=== PATIENT | male | born 1955 | race Caucasian/White ===

== ENCOUNTER 2020-02-12 | Inpatient (IN) ==
--- NOTE | 2020-02-12 00:22 | History & Physical Report ---
Date of Service February 12, 2020 Assessment & Plan (1) Seizure disorder: (2) Acute respiratory failure with hypoxemia: Carson Fregoso is a 65-year-old male with past medical history of seizure disorder and "heart problems "who presents as a direct transfer from [facility] for acute hypoxic respiratory failure. Acute respiratory failure with hypoxia 2/2 PNA Chest x-ray shows bilateral upper lobe opacities. Appearance potentially concerning for TB. Leukocytosis to 11.1. 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 On external record review by ICU provider conflicting records exist and indicate patient may have been on anticoagulation, beta-mp therapy, and amiodarone in the past. 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 Patient presented to outside hospital with a primary complaint of difficulty voiding and problems with his bowels. Patient was observed by the ED staff to be having difficulty breathing, and required placement on a BiPAP. Peripheral IV access was attempted, but unable to be obtained with repeat attempts. A central line was attempted to be placed by OSH, but central line access was not able to be obtained by the ED or general surgery staff. While in their emergency department patient was noted to have a ABG with pH 7.45, PCO2 41, oxygen pressure of 47, bicarb 28. Chest x-ray showed batwing infiltrates, and concern for edema versus infectious infiltrates. BMP 2K, negative troponin, no EKG abnormalities. Sodium 132, potassium 3.9, creatinine was acutely elevated to 1.3, chloride 97, bicarb 30, GFR 55. Patient was noted to have low phenytoin and 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 levels of 9.4 and 14.7 respectively. Patient with a leukocytosis to 11.7 and given his chest x-ray, hypoxia, and leukocytosis concern was raised for COVID. Covid test was obtained, but [facility] were not available at their facility. Case was discussed between [facility] attending and [facility] hospitalist group and accepted for transfer.Prior to transfer patient received vancomycin, cefepime, and doxycycline antibiotics and 1 g of Tylenol. Patient seen at bedside, wearing CPAP. He reports he is not short of breath, and feels "okay ". He denies fever, chills, sweats, shortness of breath, chest pain, abdominal pain. He is a limited historian. He reports a history of seizures with last seizure many years ago currently on medications that he is not able to give the name of. He denies a history of heart disease and other medications. When asked if he is aware that it was mentioned that he had heart problems noted in his chart he responds "that is news to me ". 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 He has not been around anyone who is traveled, and he himself has not traveled. 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 Denies other medical history. Medical history: Stable seizure disorder Medications: Lisinopril/hydrochlorothiazide 10/12.5 mg 1 tab daily. Phenobarbital 64.8 mg daily 500, 97.2 mg at bedtime. Phenytoin 200 mg 0500, 300 mg nightly. Surgical history: Unable to be obtained by OSH due to confusion. Allergies: Penicillin, rash. Social: Tobacco, alcohol, recreational drug use unknown, unable to obtain due to altered mental status. CODE STATUS: Full code per signout Allergies Allergy/AdvReac Type Severity Reaction Status Date / Time Penicillins Allergy Rash Verified 02/12/20 00:39 Home Medications Home Medications Medication Instructions Recorded Confirmed Type amiodarone 02/12/20 History apixaban [Eliquis] mg 02/12/20 History calcitriol 02/12/20 History ergocalciferol (vitamin D2) 02/12/20 History [Vitamin D2] levothyroxine 02/12/20 History lisinopril-hydrochlorothiazide 1 tab PO DAILY 02/12/20 02/12/20 History metoprolol succinate PO 02/12/20 History 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 64.8 mg PO 0500 02/12/20 02/12/20 History 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 97.2 mg PO HS 02/12/20 02/12/20 History phenytoin sodium 200 mg PO 0500 02/12/20 02/12/20 History phenytoin sodium 300 mg PO HS 02/12/20 02/12/20 History phenytoin sodium extended PO 02/12/20 History Past Med/Surg History Medical History (Updated 02/12/20 @ 17:27 by Gordo Stevens MD) Hematuria Seizure disorder Social History Smoking Status: Former smoker Do You Dip or Chew Tobacco: No; Hx Alcohol Use: No Hx Substance Use: No Preferred Language: Armenian Communication Ability: Effective Lead Qa Analyst Required: No Beliefs That Will Affect Care: None Current Living Situation: Alone Other Information That Helps Us Care for You: No Feels Safe at Home: Yes Safety Concerns: Feels Safe At This Time Review of Systems Review of Systems: Constitutional: Denies fever, chills, malaise, Eyes: Denies vision change ENT: Denies ear pain, sore throat, sinus pain Cardiovascular: Denies Chest pain, chest pressure, palpitations, extremity swelling Respiratory: Denies shortness of breath, cough, sputum production, difficulty breathing Gastrointestinal: Denies abdominal pain, nausea, vomiting, constipation, diarrhea Genitourinary: endorses urinary hesitancy. Denies dysuria. Musculoskeletal: Denies weakness, muscle aches/pain, joint aches/pain Integumentary:Denies rash, lesions, bruising Neurological: Denies headache, numbness, tingling, focal weakness Physical Exam Physical Exam: General: Appears fatigued. Alert and oriented to name and place. Answers questions appropriately. HEENT: Atraumatic, normocephalic. Acuity grossly intact. Pulm: On CPAP. Right upper radiating inspiratory wheeze. Moderate air movement. Symmetrical chest rise. Cardiac: RRR, -mrg. Radial pulses intact and symmetrical. Abdominal: Nontender, nondistended, soft. BS present. Extremities: Right hand with well-healed traumatic amputation/malformation of hands due to sawmill accident. Extremities otherwise warm and dry with sensation to soft touch intact. Critical Care Time Critical Care Time: Yes Total Critical Care Time: 45 Supervising Physician Co-Signing Physician Notes Attending addendum: I have physically seen this patient, have supervised the medical residents activities, and agree with the H&P unless as otherwise noted. Assessment and Plan: Acute respiratory failure with hypoxia/bilateral pneumonia- Admit to intensive care unit COVID testing negative in the ICU MRSA test negative in the ICU Placed on cefepime IV and azithromycin IV QuantiFERON gold testing, continue respiratory isolation until returns negative. Continue BiPAP and adjustment per ABGs Consult electro mechanical engineer and staff Duonebs every 4 hours while awake and every 2 hours when necessary. Elevated d-dimer, with CTA pending. Elevated troponin- Troponin 0 0.268 upon admission. The patient will be admitted to ICU for serial cardiac enzymes, serial EKG's, cardiac rhythm monitoring and a 2-D echocardiogram with Dopplers. Seizure disorder- Continue phenytoin and 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, checking levels. Remaining orders and notations as noted Resident Activity Tracking Resident Involvement: Resident Care Provided Care Provided: Adult Hospital Medicine
[2020-02-12] MEDS ORDERED: ICU PROTOCOL FOR HYPERGLYCEMIA PRN ×2 (01:06→01:07)
[2020-02-12] MEDS ORDERED: ALBUT/IPRATROP 3MG/0.5MG NEB 3 ML VIAL INH PRN (01:06)
[2020-02-12] MEDS ORDERED: MIDAZOLAM HCL 1 MG/ML 2ML VIAL IV PRN (01:17)
--- NOTE | 2020-02-12 01:26 | Critical Care Consultation ---
Date of Consultation February 12, 2020 Assessment & Plan (1) Admitted to intensive care unit: Impression: 65-year-old male, poor historian unsure of exact PMH. Presents to ICU as a direct transfer from OSH with pneumonia/hypoxemic respiratory failure on BiPAP. Neuro - History seizure disordercontinue home meds phenytoin and 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 Cardiac - Normal sinus rhythm and hemodynamically stable Patient with recent prescriptions of Eliquis, amiodarone, MTP field in December but unable to provide history -will likely need follow-up with the patient's primary physician Will obtain echocardiogram as patient has bilateral lower extremity edema and elevated BNP Monitor on telemetry Elevated troponin-no chest pain, EKG NSR without ST elevations -Trend for now Respiratory - Hypoxic respiratory failurelikely secondary to infectious pulmonary process/pneumonia -Consider CHF exacerbation, BNP elevated, however imaging more suggestive with infectious process -Elevated d-dimer, however patient denies leg pain and presentation and lab more consistent with infection -Patient with prescription for amiodarone, cannot rule out toxicity -History of smoking but not active, no known COPD; would suspect OHS/ELIE as patient is morbidly obese -CT chest pending -ABG acceptable on current BiPAP settings -DuoNebs every 4 hours. -We will hold on steroids for the time being -Continuous monitoring on pulse ox GI - N.p.o. RENAL/LYTES - Creatinine within normal limits, monitor electrolytes with routine BMPs and replete as indicated - Foleystrict I's and O's ENDO - No history of diabetes, euglycemic -ICU hyperglycemic protocol TSH pending, pharmacy rec for daily 25 mcg Synthroid, will continue for now HEME - H&H stable, monitor routine CBCs ID - Pneumonia?Patient febrile, leukocytosis, elevated CRP and d-dimer, lymphocytopenia, procalcitonin negative -Rapid COVID-19 negative, however will keep on airborne precautions at the time being as presentation is consistent with this diagnosis -Chest x-ray with bilateral patchy opacifications including apex -QuantiFERON gold testing pending -Blood cultures pending, bio fire negative -MRSA negative -Continue cefepime, azithromycin LINES/IV ACCESS - PIV DVT PROPHYLAXIS - SCDs, subcu heparin Thank you for allowing us to participate in the care of this patient. Please refer to my attending physician's documentation for any further recommendations. (2) Acute respiratory failure with hypoxemia: (3) Seizure disorder: (4) Psoriasis: (5) Pneumonia: History of Present Illness Attending Physician: Endy Courtney History of Present Illness Patient is a 65-year-old male who admits to [facility] of seizure disorder and heart problems, remains a poor historian and is unsure of his medications and dosage. He presented to the emergency department at [facility] with complaints of urinary hesitation. He was found to be a an acute hypoxic respiratory failure, and was ultimately placed on BiPAP. Chest x-ray showed bilateral infiltrates with concern for infectious process. A central line was attempted for poor access but were unable to get at the outside hospital. He was transferred as a direct admit to the ICU as a COVID-19 POI, and placed in negative pressure room. Prior to transfer he had received vancomycin, cefepime, doxycycline, and 1 g Tylenol. On arrival to the ICU patient appears comfortable on BiPAP. He denies recent illness, fevers, headaches, syncope, respiratory infections, shortness of breath or labored breathing, cough, chest pain, nausea or vomiting, abdominal pain, or diarrhea. Patient states he lives alone and manages his on health. He was unable to verify medications or dosage which were obtained from pharmacy records. He does exhibit anasarca and bilateral lower extremity edema and states he wears compression stockings but does not take diuretics. He denies blood thinners but had a prescription of Eliquis filled in December. He did admit to having a seizure disorder and was able to verify that he does take phenytoin and 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 for this. He does appear to have psoriasis and did have a prescription for calcitriol filled in December. Other meds overfilled outside pharmacy include amiodarone 200 mg daily, Synthroid, and MTP. He follows with Dr. Rick ARECHIGA as his primary care in [place]. Currently patient is stable with BiPAP settings. Chest x-ray concerning for infectious process and cultures and COVID-[address] chest. Will remain on airborne precautions for the time being. Patient remain in ICU for further management at this time. Allergies Allergy/AdvReac Type Severity Reaction Status Date / Time Penicillins Allergy Rash Verified 02/12/20 00:39 Home Medications Home Medications Medication Instructions Recorded Confirmed Type amiodarone 02/12/20 History apixaban [Eliquis] mg 02/12/20 History calcitriol 02/12/20 History ergocalciferol (vitamin D2) 02/12/20 History [Vitamin D2] levothyroxine 02/12/20 History lisinopril-hydrochlorothiazide 1 tab PO DAILY 02/12/20 02/12/20 History metoprolol succinate PO 02/12/20 History 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 64.8 mg PO 0500 02/12/20 02/12/20 History 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 97.2 mg PO HS 02/12/20 02/12/20 History phenytoin sodium 200 mg PO 0500 02/12/20 02/12/20 History phenytoin sodium 300 mg PO HS 02/12/20 02/12/20 History phenytoin sodium extended PO 02/12/20 History Patient History Medical History (Updated 02/12/20 @ 07:51 by Wes Kwong MD) Seizure disorder Social History Smoking Status: Former smoker Do You Dip or Chew Tobacco: No; Hx Alcohol Use: No Hx Substance Use: No Preferred Language: Indonesian Communication Ability: Effective Assistant Media Buyer Required: No Beliefs That Will Affect Care: None Current Living Situation: Alone Other Information That Helps Us Care for You: No Feels Safe at Home: Yes Safety Concerns: Feels Safe At This Time Review of Systems Review of Systems: All systems reviewed & are unremarkable except as noted in HPI & below Physical Exam Constitutional: + morbidly obese, cooperative and comfortable; not in distress Eyes: PERRL, conjunctivae normal, anicteric sclerae ENMT: external ear and nose normal, oropharynx normal Neck: trachea midline, no thyromegaly + short neck and + thick neck Respiratory: Lungs diminished bilaterally, symmetrical chest wall movement, nonlabored breathing Cardiovascular: Rate/Rhythm: regular rate and regular rhythm Heart Sounds: normal S1 and normal S2 Extremities: normal capillary refill Bilateral lower extremity +1 edema Gastrointestinal (Abdomen): Abdomen obese, nontender, normal bowel sounds Musculoskeletal: Well-healed right hand mutation with amputated fingers from previous trauma Neurologic: PERRL, EOMI, accommodation nl, no face palsy, no dysarthria Psychiatric: A+Ox3, euthymic affect Genitourinary: Indwelling Pham catheter present Results & Data Results & Data ([facility]) Vital Signs (Past 12 Hours) Vital Signs Temp Pulse Resp BP Pulse Ox 02/12/20 00:24 38.4 C H 95 H 23 97 02/12/20 00:13 84 28 H 97 02/12/20 00:09 38.4 C H 90 24 141/92 H 98 Coding Level of Care Code 92966 Inpt Consult Level 5 Diagnoses Admitted to intensive care unit Z78.9 Acute respiratory failure with hypoxemia J96.01 Seizure disorder G40.909 Psoriasis L40.9 Pneumonia J18.9
[2020-02-12 03:20] LABS: Appearance Urine Cloudy (Clear); Bilirubin Urine Negative (Negative); Blood Urine 3+ (Negative); Color Urine Red; Glucose Urine UA Negative (Negative); Ketones Urine Negative (Negative); Leukocyte Esterase Urine Negative (Negative); Nitrite Urine Negative (Negative); Protein Urine 3+ (Negative); Specific Gravity Urine 1.015 (1.000-1.030); Urobilinogen Urine Negative (Negative)
[2020-02-12 03:25] LABS: Basophils # (auto) 0.02 K/uL (0-0.2); Basophils % (auto) 0.2 %; Eosinophils % (auto) 0.9 %; Hematocrit (blood only) 40.1 % (42-52); Hemoglobin 13.3 g/dL (14.0-18.0); Immature Granulocytes # (auto) 0.07 K/uL (0.00-0.02); Immature Granulocytes % (auto) 0.6 %; Lymphocytes # (auto) 1.19 K/uL (1.2-3.4); Lymphocytes % (auto) 10.7 %; Mean Corpuscular Hemoglobin 32.8 pg (25-34); Mean Corpuscular Hgb Conc 33.2 g/dL (32-36); Mean Corpuscular Volume 98.8 fL (80-100); Mean Platelet Volume 9.4 fL (7.4-10.4); Monocytes # (auto) 1.09 K/uL (0.11-0.59); Monocytes % (auto) 9.8 %; Neutrophils # (auto) 8.67 K/uL (1.4-6.5); Neutrophils % (auto) 77.8 %; Nucleated RBC # (auto) 0.03 K/uL (0-0); Nucleated RBC % (auto) 0.3 %; Platelet Count 236 K/uL (130-400); RDW Coefficient of Variation 15.2 % (11.5-14.5); RDW Standard Deviation 54.8 fL (36.4-46.3); Red Blood Count 4.06 M/uL (4.7-6.1); White Blood Count 11.14 K/uL (4.8-10.8)
[2020-02-12 03:31] LABS: Bacteria Urine Negative (Negative); Epithelial Cell Urine 0-5 /lpf (0-5); RBC Urine >30 /hpf (0-4)
[2020-02-12 03:46] LABS: INR 1.1 (0.9-1.1); Partial Thromboplastin Ratio 0.9; Partial Thromboplastin Time 24.8 Seconds (21.0-31.0); Prothrombin Time 11.5 Seconds (9.0-12.0)
[2020-02-12 03:47] LABS: Albumin Level 2.7 gm/dl (3.4-5.0); BUN Creatinine Ratio 12.9 (10-20); Bilirubin Direct 0.2 mg/dl (0-0.2); Bilirubin,Total 0.5 mg/dl (0.2-1); C Reactive Protein 13.3 mg/dl (0-0.29); Calcium 7.8 mg/dl (8.5-10.1); Creatinine Clr Calc Pharmacy 100.6 ml/min; Est GFR (African American) 80.3; Est GFR (Non-African American) 69.3; Phosphorus 2.6 mg/dl (2.5-4.9); Potassium 4.1 mmol/L (3.5-5.1); Total Protein 7.7 gm/dl (6.4-8.2)
[2020-02-12 03:51] LABS: D Dimer 8110 ug/L FEU (0-500)
[2020-02-12 03:52] LABS: Troponin I 0.268 ng/ml (0-0.045)
[2020-02-12 03:58] LABS: Adenovirus PCR Not Detected (NotDetected); Bordetella parapertussis PCR Not Detected (NotDetected); Bordetella pertussis PCR Not Detected (NotDetected); Chlamydia pneumoniae PCR Not Detected (NotDetected); Coronavirus 229E PCR Not Detected (NotDetected); Coronavirus HKU1 PCR Not Detected (NotDetected); Coronavirus NL63 PCR Not Detected (NotDetected); Coronavirus OC43PCR Not Detected (NotDetected); Human Metapneumovirus PCR Not Detected (NotDetected); Influenza A PCR Not Detected (NotDetected); Influenza B PCR Not Detected (NotDetected); Mycoplasma pneumoniae PCR Not Detected (NotDetected); Parainfluenza Virus 1 PCR Not Detected (NotDetected); Parainfluenza Virus 2 PCR Not Detected (NotDetected); Parainfluenza Virus 3 PCR Not Detected (NotDetected); Parainfluenza Virus 4 PCR Not Detected (NotDetected); Respiratory Syncytial VirusPCR Not Detected (NotDetected); Rhinovirus/Enterovirus PCR Not Detected (NotDetected)
[2020-02-12] MEDS: ACETAMINOPHEN 325 MG TAB PO PRN ×3 (05:37→21:56)
[2020-02-12] MEDS: LEVOTHYROXINE SODIUM 25 MCG TABLET PO SCH (06:37)
[2020-02-12] MEDS: CEFEPIME 2,000 MG in SYRINGE 7.5 ML IV SCH ×3 (06:37→21:38)
--- NOTE | 2020-02-12 07:26 | XRay Report ---
XR chest 1V portable CLINICAL HISTORY: Shortness of breath. COMPARISON STUDY: No previous studies for comparison. FINDINGS: The heart is borderline enlarged. There are bilateral nodular airspace opacities, likely re presenting a multifocal pneumonia. There are no significant pleural effusions. There is no pneumothor ax.[ IMPRESSION: Bilateral nodular pulmonary airspace opacities, likely representing a multifocal pneumoni a. Clinical and radiographic follow-up is recommended. ACT 112: Negative or not required by law. Electronically signed by: Pietro Jones M.D. 02/12/2020 7:24 AM
--- NOTE | 2020-02-12 07:50 | Hospitalist Progress Note ---
Date of Service February 12, 2020 Assessment & Plan (1) Admitted to intensive care unit: 65-year-old male, this patient is a transfer from [facility] with acute respiratory failure with hypoxia, concern for bilateral apical infiltrates on chest x-ray, undisclosed cardiac history previously on amiodarone, and history of seizure disorder. Patient was transferred due to progressive respiratory failure despite antibiotic treatment. Patient arrives on BiPAP. Patient has negative MRSA nasal swab rapid Covid testing was negative (2) Acute respiratory failure with hypoxemia: Chest x-ray shows bilateral upper lobe opacities. Appearance potentially concerning for TB. Versus an atypical infection Patient febrile to 38.6 on admission, SPO2 greater than 90% on BiPAP COVID negative, MRSA negative, bio fire negative Was receiving cefepime/Doxy prior to transfer->transitioned to Azithromycin/Cefepime - Quantiferon Gold testing pending -Elevated [id number] -CT chest with PE protocol 02/12/2020 IMPRESSION: 1. Acute appearing extensive right-sided pulmonary emboli. No evidence of right heart strain. 2. Trace pleural effusions with bilateral upper lobe predominant groundglass and consolidative opacities suggestive of a multifocal pneumonia. One month follow- up chest CT after treatment course is recommended to document resolution. 3. Nonspecific subcutaneous stranding of the right upper chest anterior to the pectoralis. This may be on a posttraumatic or infectious basis. will discuss with critical care best approach for therapeutic anticoaguation Elevated troponin elevated BNP 0.268-0.17, suspect type II mismatch No chest pain on exam TTE pending History of Heart Condition -Patient denies history of heart condition "this would be news to me "and denies taking any heart medications. On external record review by ICU provider conflicting records exist and indicate patient may have been on anticoagulation, beta-mp therapy, and amiodarone in the past. 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, will check 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 and phenytoin levels (4) Psoriasis: (5) Pneumonia: (6) Elevated troponin: troponin 0.268-0.17, ecg nsr, will trend troponins (7) DVT prophylaxis: heparin sc for dvt Admission and Anticipated Discharge Date Admission Date: February 12, 2020 Subjective this pt remains fairly ill tolerating Bipap, he seems to have little insight into his medical history Review of Systems Review of Systems: Moderate to significant respiratory distress and moderate fatigue no headache, blurry or double vision no speech or swallowing issues no chest pain, pressure or palpitations Significantly short of breath, nonproductive cough no abdominal pain, nausea or vomiting, no dysuria, hematuria or frequency no focal joint pain or swelling no back pain, CVA tenderness or radicular pain no bruising, bleeding or rashes no focal signs of weakness or numbness or altered sensation Physical Exam Physical Exam: The patient appeared morbidly obese in mild distress Vital signs as documented. Head exam is normocephalic atraumatic no scleral icterus Neck is without JVD, thyromegaly, or carotid bruits. Lungs are initially air movement no focal loss no wheeze Cardiac exam, Rhythm is regular.. No murmurs, rubs or gallops. Abdominal exam reveals normal bowel sounds, soft non tender, no masses Extremities are nonedematous and both pedal pulses are normal. Neurologic exam is alert and oriented, no focal loss of strength or sensation Skin is without bruises or rashes Psychologically is without concerns for anxiety or depression Results & Data Results & Data ([facility]) Vital Signs (Past 12 Hours) Vital Signs Temp Pulse Pulse Resp BP Pulse Ox 02/12/20 05:00 101.7 F H 99 H 21 92 02/12/20 04:37 101.7 F H 98 H 23 132/91 92 02/12/20 04:00 101.7 F H 99 H 19 95 02/12/20 03:43 101.7 F H 102 H 24 160/98 H 95 02/12/20 03:40 94 H 24 92 02/12/20 03:00 101.5 F H 93 H 22 95 02/12/20 02:37 101.5 F H 94 H 16 134/89 95 02/12/20 02:00 101.3 F H 97 H 20 148/89 H 96 02/12/20 01:30 101.5 F H 85 22 164/100 H 93 02/12/20 01:00 101.5 F H 92 H 24 96 02/12/20 00:24 101.1 F H 95 H 23 97 02/12/20 00:13 84 28 H 97 02/12/20 00:09 101.1 F H 90 24 141/92 H 98 PG Care Time/CCT Total # of Minutes Spent Total Time Spent with Patient: Total time spent is greater than 50% in coordination of care (as documented) at patient's floor/unit and/or counseling patient: Coding Level of Care Code 39138 Subseq Hosp Care Lvl 3 Diagnoses Admitted to intensive care unit Z78.9 Acute respiratory failure with hypoxemia J96.01 Seizure disorder G40.909 Psoriasis L40.9 Pneumonia J18.9 Elevated troponin R79.89 DVT prophylaxis Z29.9
[2020-02-12] MEDS ORDERED: PNEUMOCOCCAL Polysaccharide Vaccine 25mcg/0.5mL vial/Syr IM ONE (08:00)
[2020-02-12] MEDS ORDERED: HEPARIN SOD 5,000 UNIT/0.5 ML VIAL SQ SCH (09:00)
[2020-02-12] MEDS: CALCITRIOL 0.25 MCG CAPSULE PO SCH (09:40)
[2020-02-12] MEDS: PHENYTOIN SODIUM ER 100 MG CAP PO SCH ×2 (09:40→21:38)
[2020-02-12] MEDS: METOPROLOL SUCC 25MG EXT REL TAB PO SCH (09:41)
[2020-02-12] MEDS: AZITHROMYCIN 500 MG in DEXTROSE 5% 250 ML IV SCH (09:41)
[2020-02-12 10:58] LABS: Phenytoin (Dilantin) 9.4 mcg/ml (10-20)
--- NOTE | 2020-02-12 12:47 | Electrocardiogram Report ---
Test Reason : Blood Pressure : / mmHG Vent. Rate : 096 BPM Atrial Rate : 096 BPM P-R Int : 178 ms QRS Dur : 094 ms QT Int : 370 ms P-R-T Axes : 038 020 006 degrees QTc Int : 467 ms Normal sinus rhythm Poor R wave progression, consider anterior IL vs. lead placement vs. LVH Abnormal ECG No previous ECGs available Confirmed by Ramirez Tena ([id number]) on 02/12/2020 12:47:38 PM Referred By: Endy Courtney Confirmed By:Ramirez Tena
[2020-02-12] MEDS ORDERED: OPTIRAY 320 125ml IV ONE (16:14)
--- NOTE | 2020-02-12 16:31 | CT Scan Report ---
CHEST CT WITH CONTRAST CT DOSE: 1214.67 mGy.cm HISTORY: Acute respiratory failure with reported atypical pneumonia resp failure/ atypical PNA TECHNIQUE: Multiaxial CT images of the chest were performed following the IV administration of 120 cc of Optiray 320. A dose lowering technique was utilized adhering to the principles of ALARA. COMPARISON: Chest radiograph 02/11/2020 FINDINGS: Unremarkable thyroid. No adenopathy. Moderate cardiomegaly. No pericardial effusion. Fusiform aneurys mal dilation of the ascending thoracic aorta, 4.7 x 4.6 cm. There is patency of the imaged great vess els. Mild descending thoracic aortic tortuosity. There are numerous pulmonary emboli present within t he right lobar, segmental and subsegmental branches and also within the distal right main pulmonary a rtery. No definite evidence of right heart strain. Trace pleural effusions. There is no pneumothorax. Patchy multifocal groundglass and consolidative op acities within the left greater than right upper lobes and lingula. Mild groundglass densities of the lung bases favor atelectasis. Central airways appear patent. No overt pulmonary edema. There is no acute process of the imaged upper abdomen. Nonspecific stranding of the right upper chest anterior to the pectoralis. 1.6 cm barber sebaceous cyst of the left upper back. Bones appear intact. IMPRESSION: 1. Acute appearing extensive right-sided pulmonary emboli. No evidence of right heart strain. 2. Trace pleural effusions with bilateral upper lobe predominant groundglass and consolidative opacit ies suggestive of a multifocal pneumonia. One month follow-up chest CT after treatment course is jimbo mmended to document resolution. 3. Nonspecific subcutaneous stranding of the right upper chest anterior to the pectoralis. This may b e on a posttraumatic or infectious basis. ACT 112: Negative or not required by law. Electronically signed by: Sourav Flynn M.D. 02/12/2020 4:30 PM
--- NOTE | 2020-02-12 17:21 | Urology Consultation ---
Date of Consultation February 12, 2020 Assessment & Plan (1) Hematuria: Assessment Hematuria Most likely related to his catheterization as he did not have gross bleeding until after the catheter was placed Would leave the catheter for now Possible voiding trial before the patient goes home after he is recovered from his acute illness Would work-up the hematuria as an outpatient after discharge History of Present Illness Attending Physician: Wes Kwong MD History of Present Illness Patient is a 65-year-old white male who was admitted to the ICU with a diagnosis of acute respiratory failure and hypoxia. We are asked to see the patient because of some hematuria. Patient tells me that he had been voiding prior to being admitted here and the urine was clear. When he got here Pham catheter was inserted and that is when he noticed he developed blood in the urine. While he was voiding on his own he had no dysuria hematuria. Also had no flank pain. Allergies Allergy/AdvReac Type Severity Reaction Status Date / Time Penicillins Allergy Rash Verified 02/12/20 00:39 Home Medications Home Medications Medication Instructions Recorded Confirmed Type amiodarone 02/12/20 History apixaban [Eliquis] mg 02/12/20 History calcitriol 02/12/20 History ergocalciferol (vitamin D2) 02/12/20 History [Vitamin D2] levothyroxine 02/12/20 History lisinopril-hydrochlorothiazide 1 tab PO DAILY 02/12/20 02/12/20 History metoprolol succinate PO 02/12/20 History 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 64.8 mg PO 0500 02/12/20 02/12/20 History 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 97.2 mg PO HS 02/12/20 02/12/20 History phenytoin sodium 200 mg PO 0500 02/12/20 02/12/20 History phenytoin sodium 300 mg PO HS 02/12/20 02/12/20 History phenytoin sodium extended PO 02/12/20 History Patient History Medical History (Updated 02/12/20 @ 17:27 by Gordo Stevens MD) Hematuria Seizure disorder Social History Smoking Status: Former smoker Do You Dip or Chew Tobacco: No; Hx Alcohol Use: No Hx Substance Use: No Preferred Language: [place] Communication Ability: Effective Medical Geneticist Required: No Beliefs That Will Affect Care: None Current Living Situation: Alone Other Information That Helps Us Care for You: No Feels Safe at Home: Yes Safety Concerns: Feels Safe At This Time Review of Systems Review of Systems: Review of systems reviewed from his hospitalist notes Physical Exam Physical Exam: Constitutional Well-developed well-nourished In no acute distress, Healthy appearing Neuro/psych Alert and oriented x3 Normal mood Normal affect Normal coordination Skin Normal color Normal turgor No rashes Warm and Dry Neck Normal visual inspection Pulmonary Patient somewhat short of breath but not using accessory muscles No audible wheezes Able to speak in complete sentences Cardiac Lower extremity peripheral edema patient has a Pham catheter indwelling urine is mercedes in color no clots Results & Data ([facility]) Vital Signs (Past 12 Hours) Vital Signs Temp Pulse Pulse Resp BP Pulse Ox 02/12/20 15:11 100 H 26 H 94 02/12/20 14:38 38.1 C H 98 H 28 H 117/57 L 86 L 02/12/20 14:00 37.8 C H 104 H 22 87 L 02/12/20 13:38 37.6 C H 100 H 27 H 135/62 87 L 02/12/20 13:00 37.5 C 94 H 20 84 L 02/12/20 12:37 37.5 C 90 27 H 129/77 94 02/12/20 11:37 37.6 C H 81 26 H 133/81 100 02/12/20 10:37 37.4 C 84 26 H 129/86 97 02/12/20 09:37 37.4 C 95 H 21 125/72 94 02/12/20 08:37 37.6 C H 103 H 23 125/84 93 02/12/20 08:00 95 H 25 H 93 02/12/20 07:37 37.8 C H 93 H 19 111/76 93 Laboratory Results Laboratory Results - last 24 hr 02/12/20 02/12/20 02/12/20 00:00 00:00 00:00 WBC RBC Hgb Hct MCV MCH MCHC RDW Std Deviation RDW Coeff of [place] Plt Count MPV Immature Gran % (Auto) Neut % (Auto) Lymph % (Auto) [place] % (Auto) Eos % (Auto) Baso % (Auto) Neut # (Auto) Lymph # (Auto) [place] # (Auto) Eos # (Auto) Baso # (Auto) Immature Gran # (Auto) Absolute Nucleated RBC Nucleated RBC % (auto) PT INR APTT PTT Ratio D-Dimer Sodium Potassium Chloride Carbon Dioxide Anion Gap BUN Creatinine Est Cr Clr Drug Dosing Est GFR ( Amer) Est GFR (Non-Af Amer) BUN/Creatinine Ratio Glucose POC Glucose Calcium Phosphorus Magnesium Total Bilirubin Direct Bilirubin AST ALT Alkaline Phosphatase Troponin I C-Reactive Protein NT-Pro-B Natriuret Pep Total Protein Albumin Lipase Procalcitonin TSH Urine Color Urine Appearance Urine pH Ur Specific [place] Urine Protein Urine Glucose (UA) Urine Ketones Urine Blood Urine Nitrite Urine Bilirubin Urine Urobilinogen Ur Leukocyte Esterase Urine RBC Urine WBC Ur Epithelial Cells Urine Bacteria Nasal Screen MRSA (PCR) Negative Phenytoin Phenobarbital Adenovirus (PCR) B. pertussis DNA (PCR) B.parapertussis DNA PCR C. pneumoniae DNA (PCR) Coronavirus OC43 (PCR) Coronavirus HKU1 (PCR) Coronavirus 229E (PCR) COVID-19 Eval Order Covid19 Done at [facility] COVID-19 PCR NEGATIVE Coronavirus NL63 (PCR) Hepatitis C Ab Screen Human Metapneumovir PCR Influenza Type A (PCR) Influenza Type B (PCR) M. pneumoniae (PCR) Parainfluenza 1 (PCR) Parainfluenza 2 (PCR) Parainfluenza 3 (PCR) Parainfluenza 4 (PCR) RSV (PCR) Entero/Rhino (PCR) TB Test (QFT) Gold Plus TB Test (QFT) Nil TB Test Mitogen - Nil TB Test Ag - Nil 1 TB Test Ag - Nil 2 02/12/20 02/12/20 02/12/20 00:00 00:40 02:30 WBC RBC Hgb Hct MCV MCH MCHC RDW Std Deviation RDW Coeff of [place] Plt Count MPV Immature Gran % (Auto) Neut % (Auto) Lymph % (Auto) [place] % (Auto) Eos % (Auto) Baso % (Auto) Neut # (Auto) Lymph # (Auto) [place] # (Auto) Eos # (Auto) Baso # (Auto) Immature Gran # (Auto) Absolute Nucleated RBC Nucleated RBC % (auto) PT INR APTT PTT Ratio D-Dimer Sodium Potassium Chloride Carbon Dioxide Anion Gap BUN Creatinine Est Cr Clr Drug Dosing Est GFR ( Amer) Est GFR (Non-Af Amer) BUN/Creatinine Ratio Glucose POC Glucose 112 H Calcium Phosphorus Magnesium Total Bilirubin Direct Bilirubin AST ALT Alkaline Phosphatase Troponin I C-Reactive Protein NT-Pro-B Natriuret Pep Total Protein Albumin Lipase Procalcitonin TSH Urine Color Red Urine Appearance Cloudy A Urine pH 7.0 Ur Specific [place] 1.015 Urine Protein 3+ H Urine Glucose (UA) Negative Urine Ketones Negative Urine Blood 3+ H Urine Nitrite Negative Urine Bilirubin Negative Urine Urobilinogen Negative Ur Leukocyte Esterase Negative Urine RBC >30 H Urine WBC 5-10 H Ur Epithelial Cells 0-5 Urine Bacteria Negative Nasal Screen MRSA (PCR) Phenytoin Phenobarbital Adenovirus (PCR) Not Detected B. pertussis DNA (PCR) Not Detected B.parapertussis DNA PCR Not Detected C. pneumoniae DNA (PCR) Not Detected Coronavirus OC43 (PCR) Not Detected Coronavirus HKU1 (PCR) Not Detected Coronavirus 229E (PCR) Not Detected COVID-19 Eval Order COVID-19 PCR Coronavirus NL63 (PCR) Not Detected Hepatitis C Ab Screen Human Metapneumovir PCR Not Detected Influenza Type A (PCR) Not Detected Influenza Type B (PCR) Not Detected M. pneumoniae (PCR) Not Detected Parainfluenza 1 (PCR) Not Detected Parainfluenza 2 (PCR) Not Detected Parainfluenza 3 (PCR) Not Detected Parainfluenza 4 (PCR) Not Detected RSV (PCR) Not Detected Entero/Rhino (PCR) Not Detected TB Test (QFT) Gold Plus TB Test (QFT) Nil TB Test Mitogen - Nil TB Test Ag - Nil 1 TB Test Ag - Nil 2 02/12/20 02/12/20 02/12/20 03:16 03:16 03:16 WBC 11.14 H RBC 4.06 L Hgb 13.3 L Hct 40.1 L MCV 98.8 MCH 32.8 MCHC 33.2 RDW Std Deviation 54.8 H RDW Coeff of [place] 15.2 H Plt Count 236 MPV 9.4 Immature Gran % (Auto) 0.6 Neut % (Auto) 77.8 Lymph % (Auto) 10.7 [place] % (Auto) 9.8 Eos % (Auto) 0.9 Baso % (Auto) 0.2 Neut # (Auto) 8.67 H Lymph # (Auto) 1.19 L [place] # (Auto) 1.09 H Eos # (Auto) 0.10 Baso # (Auto) 0.02 Immature Gran # (Auto) 0.07 H Absolute Nucleated RBC 0.03 H Nucleated RBC % (auto) 0.3 PT 11.5 INR 1.1 APTT 24.8 PTT Ratio 0.9 D-Dimer 8110 H* Sodium Potassium Chloride Carbon Dioxide Anion Gap BUN Creatinine Est Cr Clr Drug Dosing Est GFR ( Amer) Est GFR (Non-Af Amer) BUN/Creatinine Ratio Glucose POC Glucose Calcium Phosphorus Magnesium Total Bilirubin Direct Bilirubin AST ALT Alkaline Phosphatase Troponin I C-Reactive Protein NT-Pro-B Natriuret Pep Total Protein Albumin Lipase Procalcitonin TSH Urine Color Urine Appearance Urine pH Ur Specific [place] Urine Protein Urine Glucose (UA) Urine Ketones Urine Blood Urine Nitrite Urine Bilirubin Urine Urobilinogen Ur Leukocyte Esterase Urine RBC Urine WBC Ur Epithelial Cells Urine Bacteria Nasal Screen MRSA (PCR) Phenytoin Phenobarbital Adenovirus (PCR) B. pertussis DNA (PCR) B.parapertussis DNA PCR C. pneumoniae DNA (PCR) Coronavirus OC43 (PCR) Coronavirus HKU1 (PCR) Coronavirus 229E (PCR) COVID-19 Eval Order COVID-19 PCR Coronavirus NL63 (PCR) Hepatitis C Ab Screen Neg Human Metapneumovir PCR Influenza Type A (PCR) Influenza Type B (PCR) M. pneumoniae (PCR) Parainfluenza 1 (PCR) Parainfluenza 2 (PCR) Parainfluenza 3 (PCR) Parainfluenza 4 (PCR) RSV (PCR) Entero/Rhino (PCR) TB Test (QFT) Gold Plus TB Test (QFT) Nil TB Test Mitogen - Nil TB Test Ag - Nil 1 TB Test Ag - Nil 2 02/12/20 02/12/20 02/12/20 03:16 03:16 03:16 WBC RBC Hgb Hct MCV MCH MCHC RDW Std Deviation RDW Coeff of [place] Plt Count MPV Immature Gran % (Auto) Neut % (Auto) Lymph % (Auto) [place] % (Auto) Eos % (Auto) Baso % (Auto) Neut # (Auto) Lymph # (Auto) [place] # (Auto) Eos # (Auto) Baso # (Auto) Immature Gran # (Auto) Absolute Nucleated RBC Nucleated RBC % (auto) PT INR APTT PTT Ratio D-Dimer Sodium 134 L Potassium 4.1 Chloride 104 Carbon Dioxide 26 Anion Gap 4.0 BUN 14 Creatinine 1.11 Est Cr Clr Drug Dosing 100.6 Est GFR ( Amer) 80.3 Est GFR (Non-Af Amer) 69.3 BUN/Creatinine Ratio 12.9 Glucose 111 H POC Glucose Calcium 7.8 L Phosphorus 2.6 Magnesium 2.0 Total Bilirubin 0.5 Direct Bilirubin 0.2 AST 41 H ALT 52 Alkaline Phosphatase 63 Troponin I 0.268 H* C-Reactive Protein 13.30 H NT-Pro-B Natriuret Pep 1599 H Total Protein 7.7 Albumin 2.7 L Lipase 232 Procalcitonin 0.10 TSH 2.940 Urine Color Urine Appearance Urine pH Ur Specific [place] Urine Protein Urine Glucose (UA) Urine Ketones Urine Blood Urine Nitrite Urine Bilirubin Urine Urobilinogen Ur Leukocyte Esterase Urine RBC Urine WBC Ur Epithelial Cells Urine Bacteria Nasal Screen MRSA (PCR) Phenytoin Phenobarbital Adenovirus (PCR) B. pertussis DNA (PCR) B.parapertussis DNA PCR C. pneumoniae DNA (PCR) Coronavirus OC43 (PCR) Coronavirus HKU1 (PCR) Coronavirus 229E (PCR) COVID-19 Eval Order COVID-19 PCR Coronavirus NL63 (PCR) Hepatitis C Ab Screen Human Metapneumovir PCR Influenza Type A (PCR) Influenza Type B (PCR) M. pneumoniae (PCR) Parainfluenza 1 (PCR) Parainfluenza 2 (PCR) Parainfluenza 3 (PCR) Parainfluenza 4 (PCR) RSV (PCR) Entero/Rhino (PCR) TB Test (QFT) Gold Plus TB Test (QFT) Nil TB Test Mitogen - Nil TB Test Ag - Nil 1 TB Test Ag - Nil 2 02/12/20 02/12/20 02/12/20 04:40 08:37 09:51 WBC RBC Hgb Hct MCV MCH MCHC RDW Std Deviation RDW Coeff of [place] Plt Count MPV Immature Gran % (Auto) Neut % (Auto) Lymph % (Auto) [place] % (Auto) Eos % (Auto) Baso % (Auto) Neut # (Auto) Lymph # (Auto) [place] # (Auto) Eos # (Auto) Baso # (Auto) Immature Gran # (Auto) Absolute Nucleated RBC Nucleated RBC % (auto) PT INR APTT PTT Ratio D-Dimer Sodium Potassium Chloride Carbon Dioxide Anion Gap BUN Creatinine Est Cr Clr Drug Dosing Est GFR ( Amer) Est GFR (Non-Af Amer) BUN/Creatinine Ratio Glucose POC Glucose 101 H Calcium Phosphorus Magnesium Total Bilirubin Direct Bilirubin AST ALT Alkaline Phosphatase Troponin I 0.174 H* C-Reactive Protein NT-Pro-B Natriuret Pep Total Protein Albumin Lipase Procalcitonin TSH Urine Color Urine Appearance Urine pH Ur Specific [place] Urine Protein Urine Glucose (UA) Urine Ketones Urine Blood Urine Nitrite Urine Bilirubin Urine Urobilinogen Ur Leukocyte Esterase Urine RBC Urine WBC Ur Epithelial Cells Urine Bacteria Nasal Screen MRSA (PCR) Phenytoin Phenobarbital Adenovirus (PCR) B. pertussis DNA (PCR) B.parapertussis DNA PCR C. pneumoniae DNA (PCR) Coronavirus OC43 (PCR) Coronavirus HKU1 (PCR) Coronavirus 229E (PCR) COVID-19 Eval Order COVID-19 PCR Coronavirus NL63 (PCR) Hepatitis C Ab Screen Human Metapneumovir PCR Influenza Type A (PCR) Influenza Type B (PCR) M. pneumoniae (PCR) Parainfluenza 1 (PCR) Parainfluenza 2 (PCR) Parainfluenza 3 (PCR) Parainfluenza 4 (PCR) RSV (PCR) Entero/Rhino (PCR) TB Test (QFT) Gold Plus Pending TB Test (QFT) Nil Pending TB Test Mitogen - Nil Pending TB Test Ag - Nil 1 Pending TB Test Ag - Nil 2 Pending 02/12/20 02/12/20 02/12/20 09:51 12:06 13:25 WBC RBC Hgb Hct MCV MCH MCHC RDW Std Deviation RDW Coeff of [place] Plt Count MPV Immature Gran % (Auto) Neut % (Auto) Lymph % (Auto) [place] % (Auto) Eos % (Auto) Baso % (Auto) Neut # (Auto) Lymph # (Auto) [place] # (Auto) Eos # (Auto) Baso # (Auto) Immature Gran # (Auto) Absolute Nucleated RBC Nucleated RBC % (auto) PT INR APTT PTT Ratio D-Dimer Sodium Potassium Chloride Carbon Dioxide Anion Gap BUN Creatinine Est Cr Clr Drug Dosing Est GFR ( Amer) Est GFR (Non-Af Amer) BUN/Creatinine Ratio Glucose POC Glucose 111 H Calcium Phosphorus Magnesium Total Bilirubin Direct Bilirubin AST ALT Alkaline Phosphatase Troponin I C-Reactive Protein NT-Pro-B Natriuret Pep Total Protein Albumin Lipase Procalcitonin TSH Urine Color Urine Appearance Urine pH Ur Specific [place] Urine Protein Urine Glucose (UA) Urine Ketones Urine Blood Urine Nitrite Urine Bilirubin Urine Urobilinogen Ur Leukocyte Esterase Urine RBC Urine WBC Ur Epithelial Cells Urine Bacteria Nasal Screen MRSA (PCR) Phenytoin 9.4 L Phenobarbital 14.8 L Adenovirus (PCR) B. pertussis DNA (PCR) B.parapertussis DNA PCR C. pneumoniae DNA (PCR) Coronavirus OC43 (PCR) Coronavirus HKU1 (PCR) Coronavirus 229E (PCR) COVID-19 Eval Order Covid19 Done at [facility] COVID-19 PCR Coronavirus NL63 (PCR) Hepatitis C Ab Screen Human Metapneumovir PCR Influenza Type A (PCR) Influenza Type B (PCR) M. pneumoniae (PCR) Parainfluenza 1 (PCR) Parainfluenza 2 (PCR) Parainfluenza 3 (PCR) Parainfluenza 4 (PCR) RSV (PCR) Entero/Rhino (PCR) TB Test (QFT) Gold Plus TB Test (QFT) Nil TB Test Mitogen - Nil TB Test Ag - Nil 1 TB Test Ag - Nil 2 02/12/20 02/12/20 13:25 16:36 WBC RBC Hgb Hct MCV MCH MCHC RDW Std Deviation RDW Coeff of [place] Plt Count MPV Immature Gran % (Auto) Neut % (Auto) Lymph % (Auto) [place] % (Auto) Eos % (Auto) Baso % (Auto) Neut # (Auto) Lymph # (Auto) [place] # (Auto) Eos # (Auto) Baso # (Auto) Immature Gran # (Auto) Absolute Nucleated RBC Nucleated RBC % (auto) PT INR APTT PTT Ratio D-Dimer Sodium Potassium Chloride Carbon Dioxide Anion Gap BUN Creatinine Est Cr Clr Drug Dosing Est GFR ( Amer) Est GFR (Non-Af Amer) BUN/Creatinine Ratio Glucose POC Glucose 102 H Calcium Phosphorus Magnesium Total Bilirubin Direct Bilirubin AST ALT Alkaline Phosphatase Troponin I C-Reactive Protein NT-Pro-B Natriuret Pep Total Protein Albumin Lipase Procalcitonin TSH Urine Color Urine Appearance Urine pH Ur Specific [place] Urine Protein Urine Glucose (UA) Urine Ketones Urine Blood Urine Nitrite Urine Bilirubin Urine Urobilinogen Ur Leukocyte Esterase Urine RBC Urine WBC Ur Epithelial Cells Urine Bacteria Nasal Screen MRSA (PCR) Phenytoin Phenobarbital Adenovirus (PCR) B. pertussis DNA (PCR) B.parapertussis DNA PCR C. pneumoniae DNA (PCR) Coronavirus OC43 (PCR) Coronavirus HKU1 (PCR) Coronavirus 229E (PCR) COVID-19 Eval Order COVID-19 PCR NEGATIVE Coronavirus NL63 (PCR) Hepatitis C Ab Screen Human Metapneumovir PCR Influenza Type A (PCR) Influenza Type B (PCR) M. pneumoniae (PCR) Parainfluenza 1 (PCR) Parainfluenza 2 (PCR) Parainfluenza 3 (PCR) Parainfluenza 4 (PCR) RSV (PCR) Entero/Rhino (PCR) TB Test (QFT) Gold Plus TB Test (QFT) Nil TB Test Mitogen - Nil TB Test Ag - Nil 1 TB Test Ag - Nil 2 PG Care Time/CCT Total # of Minutes Spent Total Time Spent with Patient: Total time spent is greater than 50% in coordination of care (as documented) at patient's floor/unit and/or counseling patient: Coding Level of Care Code 14070 Office/OBS Consult Lvl 3 Diagnoses Hematuria R31.9
[2020-02-12] MEDS ORDERED: HEPARIN SODIUM/DEXTROSE 25,000 UNITS/500 ML BAG IV SCH (17:30)
[2020-02-12] MEDS ORDERED: HEPARIN IV BOLUS 9,000 UNITS in SYRINGE 0 ML IV ONE (17:45)
[2020-02-12] MEDS: HEPARIN SODIUM/DEXTROSE 25,000 UNITS/500 ML BAG IV SCH (18:01)
[2020-02-12 18:51] LABS: Basophils # (auto) 0.04 K/uL (0-0.2); Basophils % (auto) 0.3 %; Eosinophils # (auto) 0.28 K/uL (0-0.5); Eosinophils % (auto) 2.3 %; Hematocrit (blood only) 40.4 % (42-52); Hemoglobin 12.9 g/dL (14.0-18.0); Immature Granulocytes # (auto) 0.11 K/uL (0.00-0.02); Immature Granulocytes % (auto) 0.9 %; Lymphocytes # (auto) 1.77 K/uL (1.2-3.4); Lymphocytes % (auto) 14.5 %; Mean Corpuscular Hemoglobin 32.3 pg (25-34); Mean Corpuscular Hgb Conc 31.9 g/dL (32-36); Mean Corpuscular Volume 101.3 fL (80-100); Mean Platelet Volume 9.9 fL (7.4-10.4); Monocytes # (auto) 1.75 K/uL (0.11-0.59); Monocytes % (auto) 14.4 %; Neutrophils # (auto) 8.24 K/uL (1.4-6.5); Neutrophils % (auto) 67.6 %; Platelet Count 218 K/uL (130-400); RDW Coefficient of Variation 15.5 % (11.5-14.5); RDW Standard Deviation 56.9 fL (36.4-46.3); Red Blood Count 3.99 M/uL (4.7-6.1); White Blood Count 12.19 K/uL (4.8-10.8)
[2020-02-12] MEDS ORDERED: PHENYTOIN 100 MG/4 ML UDP PO SCH (21:00)
[2020-02-13 00:23] LABS: Partial Thromboplastin Ratio 2.4
--- NOTE | 2020-02-13 01:47 | Billing Data ---
Date of Service February 13, 2020 Coding Level of Care Code Critical Care 1st - mins
[2020-02-13 05:31] LABS: iSTAT Arterial Blood Gas HCO3 29 meg/L (19-24); iSTAT Arterial Blood Gas pCO2 52 mmHg (35-46); iSTAT Arterial Blood Gas pH 7.36 (7.35-7.45); iSTAT Arterial Blood Gas pO2 91 mmHg (80-95); iSTAT Carbon Dioxide 31 mmol/L (24-31); iSTAT Hematocrit 38 % (42-52); iSTAT Hemoglobin 12.9 g/dl (14.0-18.0); iSTAT Potassium 4.1 mmol/L (3.3-5.0); iSTAT Sodium 135 mmol/L (135-144)
[2020-02-13] MEDS: CEFEPIME 2,000 MG in SYRINGE 7.5 ML IV SCH ×3 (05:41→21:15)
[2020-02-13] MEDS: LEVOTHYROXINE SODIUM 25 MCG TABLET PO SCH (05:42)
[2020-02-13] MEDS: HEPARIN SODIUM/DEXTROSE 25,000 UNITS/500 ML BAG IV SCH ×3 (06:22→18:29)
[2020-02-13 06:50] LABS: Basophils # (auto) 0.03 K/uL (0-0.2); Basophils % (auto) 0.3 %; Eosinophils # (auto) 0.42 K/uL (0-0.5); Eosinophils % (auto) 3.9 %; Hematocrit (blood only) 38.7 % (42-52); Hemoglobin 12.5 g/dL (14.0-18.0); Immature Granulocytes # (auto) 0.12 K/uL (0.00-0.02); Immature Granulocytes % (auto) 1.1 %; Mean Corpuscular Hemoglobin 32.9 pg (25-34); Mean Corpuscular Hgb Conc 32.3 g/dL (32-36); Mean Corpuscular Volume 101.8 fL (80-100); Mean Platelet Volume 9.6 fL (7.4-10.4); Monocytes # (auto) 1.19 K/uL (0.11-0.59); Monocytes % (auto) 11.2 %; Neutrophils # (auto) 7.18 K/uL (1.4-6.5); Neutrophils % (auto) 67.5 %; Platelet Count 223 K/uL (130-400); RDW Coefficient of Variation 15.7 % (11.5-14.5); RDW Standard Deviation 57.2 fL (36.4-46.3); White Blood Count 10.64 K/uL (4.8-10.8)
--- NOTE | 2020-02-13 07:05 | Ultrasound Report ---
ULTRASOUND BILATERAL LOWER EXTREMITY VENOUS CLINICAL HISTORY: Pulmonary embolus. COMPARISON STUDY: No priors. TECHNIQUE: Real-time, grayscale, and color Doppler sonography of the deep veins of the right and left lower extremity was performed from the inguinal crease to the calf. Compression and augmentation wer e utilized. FINDINGS: There is no sonographic evidence of deep venous thrombosis identified in the right or left lower extremity. The common femoral, superficial femoral, and popliteal veins are patent and normally compressible bilaterally. The greater saphenous vein and the profunda femoris vein at the junction w ith the common femoral vein are clear in both legs. The visualized calf veins are patent bilaterally. IMPRESSION: There is no sonographic evidence of deep venous thrombosis identified in the right or lef t lower extremity. ACT 112: Negative or not required by law. Electronically signed by: Teofilo Gutierrez M.D. 02/13/2020 7:03 AM
[2020-02-13 07:10] LABS: INR 1.1 (0.9-1.1); Partial Thromboplastin Ratio 1.6; Prothrombin Time 11.5 Seconds (9.0-12.0)
[2020-02-13 07:12] LABS: Partial Thromboplastin Time 45.3 Seconds (21.0-31.0)
[2020-02-13 07:22] LABS: BUN Creatinine Ratio 16.8 (10-20); Calcium 7.8 mg/dl (8.5-10.1); Creatinine Clr Calc Pharmacy 87.4 ml/min; Est GFR (African American) 68.3; Est GFR (Non-African American) 58.9; Magnesium 2.4 mg/dl (1.8-2.4); Potassium 4.2 mmol/L (3.5-5.1)
[2020-02-13 07:35] LABS: Phosphorus 3.5 mg/dl (2.5-4.9)
--- NOTE | 2020-02-13 07:55 | Critical Care Consultation ---
Date of Consultation February 13, 2020 Assessment & Plan (1) Pulmonary emboli: 65-year-old male, poor historian unsure of exact PMHx. Presents to ICU as a direct transfer from OSH with pneumonia/acute on chronic hypercapnic hypoxemic respiratory failure on BiPAP. Right sided PE noted on CT w/ initial PESI score of 205 points with very high risk. Neuro - - History seizure disordercontinue home meds phenytoin and 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 Cardiac - - sinus tachycardia, hemodynamically stable - Patient with recent prescriptions of Eliquis, amiodarone, MTP field in December but unable to provide history - will need to follow-up with the patient's primary physician - Will obtain echocardiogram as patient has bilateral lower extremity edema and elevated BNP - Monitor on telemetry Elevated troponin-no chest pain, EKG NSR without ST elevations - was downtrending, no longer trending Respiratory - Acute on chronic hypercapnic hypoxic respiratory failure with right sided PE noted on CT chest, along with bilateral upper lobe ground glass opacities consistent with multifocal pneumonia - Covid negative, MRSA negative, blood cultures no growth at 24 hours - on high flow NC, continue to wean as tolerable - ABG with findings of respiratory acidosis with compensation - DuoNebs every 4 hours. - Continuous monitoring on pulse ox - will obtain ECHO to further evaluate PE -on Heparin drip, no right heart strain appreciated on CT, Hemodynamically stable -ECHO ordered, follow up results Pneumonia - per ID section Concern for ELIE - consider outpatient sleep study GI - - low sodium diet RENAL/LYTES - - Creatinine within normal limits, - - Foleystrict I's and O's - blood in Pham while on heparin drip likely 2/2 catheterization - continue to monitor H&H and monitor for now ENDO - - No history of diabetes - ICU hyperglycemic protocol - TSH 2.94, on daily 25 mcg Synthroid HEME - - H&H stable, monitor routine CBCs ID - - Pneumonia?Patient afebrile, leukocytosis, elevated CRP and d-dimer, lymphocytopenia, procalcitonin negative - bilateral patchy opacifications including apex - QuantiFERON gold testing pending - Blood cultures pending, bio fire negative - MRSA negative - Continue cefepime, azithromycin LINES/IV ACCESS - - PIV DVT PROPHYLAXIS - - SCDs, heparin (2) DVT prophylaxis: (3) Hematuria: (4) Pneumonia: (5) Acute respiratory failure with hypoxemia: (6) Seizure disorder: Supervising Physician Co-Signing Physician Notes Dr. Flores was the resident-physician during care of patient. I separately evaluated patient for schuler portions of the history and the exam. I was present during the critical portion of medical decision making, and I discussed the case with the resident. I generally agree with the findings and plan except for any additions/exceptions noted. 65-year-old male with a past medical history of morbid obesity, hypertension likely ELIE/OHS presenting with acute pulmonary embolism. Patient currently in hypoxemic respiratory failure requiring high flow nasal cannula. Maintain saturations above 92%. BiPAP nightly. He will need a sleep study as an outpatient. Echocardiogram is pending. No evidence of RV strain on the CT chest. There are left upper lobe parenchymal infiltrates and right-sided infiltrates. We gave 1 dose of 40 mg IV Lasix today. He continues to have some hematuria likely from a traumatic Pham placement. Appreciate urology consu ltation. Leave Pham in place for the time being. He is currently on a heparin drip and we are starting Coumadin today with a goal INR of 2-3. Unfortunately I do not think he would be a good candidate for direct oral anticoagulants given his body habitus. Should he have a significant decompensation, may consider half dose TPA. Continue broad-spectrum antibiotics empirically for 48 hours. Fevers are starting to improve and were likely related to acute clot burden. No lower extremity DVT was noted. Will remain in the ICU today and likely transfer out tomorrow. I have personally spent 31 minutes of critical care time in the direct management of this patient. This is a life/limb threatening event. This includes time spent evaluating patient, direct bedside care, chart review, placing orders, interpretation of diagnostic studies, discussion with consultants, patient, and/or family members regarding treatment decisions, as well as other required patient management activities. This time is exclusive of all separately billable procedures, and teaching time and separate from and in addition to any other critical care service time. History of Present Illness Attending Physician: Jeffrey Harvey, DO Doing okay this morning, he denied any smoking history. [place], he does not currently take care of any animals. 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 Allergies Allergy/AdvReac Type Severity Reaction Status Date / Time Penicillins Allergy Rash Verified 02/12/20 00:39 Home Medications Home Medications Medication Instructions Recorded Confirmed Type amiodarone 02/12/20 History apixaban [Eliquis] mg 02/12/20 History calcitriol 02/12/20 History ergocalciferol (vitamin D2) 02/12/20 History [Vitamin D2] levothyroxine 02/12/20 History lisinopril-hydrochlorothiazide 1 tab PO DAILY 02/12/20 02/12/20 History metoprolol succinate PO 02/12/20 History 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 64.8 mg PO 0500 02/12/20 02/12/20 History 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 97.2 mg PO HS 02/12/20 02/12/20 History phenytoin sodium 200 mg PO 0500 02/12/20 02/12/20 History phenytoin sodium 300 mg PO HS 02/12/20 02/12/20 History phenytoin sodium extended PO 02/12/20 History Patient History Medical History Hematuria Seizure disorder Social History Smoking Status: Former smoker Do You Dip or Chew Tobacco: No; Hx Alcohol Use: No Hx Substance Use: No Preferred Language: Maori Communication Ability: Effective Carpet Layer Required: No Beliefs That Will Affect Care: None Current Living Situation: Alone Other Information That Helps Us Care for You: No Feels Safe at Home: Yes Safety Concerns: Feels Safe At This Time Review of Systems Review of Systems: Constitutional: denies fevers, chills Cardiac: denies chest pain, palpitations GI: denies nausea, vomiting Pulm: denies cough, shortness of breath Neuro: denies headache : Pham in place Physical Exam Constitutional: well developed and well nourished Eyes: PERRL, conjunctivae normal, anicteric sclerae Respiratory: - decreased breath sounds throughout - no increased work of breathing - coarse nonfocal sounds in all lung reed L>R Cardiovascular: - no murmur rubs rales - tachycardia - nonpitting edema of the lower extremity Gastrointestinal (Abdomen): - soft, nTTP, decreased bowel sounds, no masses Musculoskeletal: - right hand with traumatic amputation Skin: no rashes, warm and dry Psychiatric: Orientation: alert Genitourinary: - blood in Pham catheter Results & Data Results & Data ([facility]) Vital Signs (Past 12 Hours) Vital Signs Temp Pulse Resp BP Pulse Ox 02/13/20 07:46 20 94 02/13/20 07:29 87 20 95 02/13/20 03:34 88 22 95 02/13/20 00:10 87 22 96 02/13/20 00:00 93 H 02/12/20 22:37 38.1 C H 95 H 22 132/82 96 02/12/20 22:30 38.2 C H 101 H 23 96 02/12/20 22:00 38.2 C H 103 H 22 97 02/12/20 21:40 100 H 22 96 02/12/20 21:37 38.2 C H 95 H 29 H 142/90 H 97 02/12/20 21:30 38.2 C H 96 H 30 H 97 02/12/20 21:00 38.2 C H 87 27 H 96 02/12/20 20:37 38.1 C H 89 25 H 144/85 H 96 02/12/20 20:30 38.1 C H 92 H 27 H 95 02/12/20 20:17 38.1 C H 94 H 28 H 139/88 97 02/12/20 20:00 38.1 C H 95 H 29 H 96 CBC Results Results Complete Blood Count Results: RBC 3.80 M/uL (4.7-6.1) L 02/13/20 WBC 10.64 K/uL (4.8-10.8) 02/13/20 Hgb 12.5 g/dL (14.0-18.0) L 02/13/20 Hct 38.7 % (42-52) L 02/13/20 Plt Count 223 K/uL (130-400) 02/13/20 Chemistry (BMP) Results BMP Results: Sodium 136 mmol/L (136-145) 02/13/20 Potassium 4.2 mmol/L (3.5-5.1) 02/13/20 Chloride 103 mmol/L (98-107) 02/13/20 BUN 21 mg/dl (7-18) H 02/13/20 Creatinine 1.27 mg/dl (0.6-1.4) 02/13/20 Glucose 104 mg/dl (70-99) H 02/13/20 Resident Activity Tracking Resident Involvement: Resident Care Provided Care Provided: Adult Hospital Medicine
[2020-02-13] MEDS ORDERED: HEPARIN IV BOLUS 4,000 UNITS in SYRINGE 0 ML IV ONE (08:00)
[2020-02-13] MEDS: PHENYTOIN SODIUM ER 100 MG CAP PO SCH ×2 (08:09→21:12)
[2020-02-13] MEDS: METOPROLOL SUCC 25MG EXT REL TAB PO SCH (08:09)
[2020-02-13] MEDS: CALCITRIOL 0.25 MCG CAPSULE PO SCH (08:10)
[2020-02-13] MEDS: AZITHROMYCIN 500 MG in DEXTROSE 5% 250 ML IV SCH (08:13)
[2020-02-13] MEDS ORDERED: FUROSEMIDE 40 MG in SYRINGE 0 ML IV ONE (09:00)
--- NOTE | 2020-02-13 09:52 | XRay Report ---
XR chest 1V portable CLINICAL HISTORY: follow up infiltrates COMPARISON STUDY: Chest radiograph February 11, 2020. Chest CT February 12, 2020. FINDINGS: There is no pneumothorax or pleural effusion. Moderate cardiomegaly is noted. Multifocal bi lateral airspace opacities are similar to prior exam. IMPRESSION: No significant change in bilateral airspace opacities which favor an infectious process. ACT 112: Negative or not required by law. Electronically signed by: Pedro Garcia M.D. 02/13/2020 9:51 AM
[2020-02-13] MEDS ORDERED: WARFARIN SOD 10 MG TAB PO ONE (10:15)
--- NOTE | 2020-02-13 13:06 | Electrocardiogram Report ---
Test Reason : Blood Pressure : / mmHG Vent. Rate : 108 BPM Atrial Rate : 108 BPM P-R Int : 170 ms QRS Dur : 088 ms QT Int : 356 ms P-R-T Axes : 025 012 006 degrees QTc Int : 477 ms Sinus tachycardia with Premature supraventricular complexes and with occasional Premature ventricular complexes Otherwise normal ECG When compared with ECG of 12-FEB-2020 05:33, Premature ventricular complexes are now Present Premature supraventricular complexes are now Present T wave inversion no longer evident in Anterior leads Confirmed by Ramirez Tena ([id number]) on 02/13/2020 1:06:36 PM Referred By: Endy Courtney Confirmed By:Ramirez Tena
--- NOTE | 2020-02-13 15:02 | Billing Data ---
Date of Service February 13, 2020 Coding Level of Care Code Critical Care 1st 30-74 mins Time Spent (min) 31
[2020-02-13 15:04] LABS: Partial Thromboplastin Ratio 1.7
--- NOTE | 2020-02-13 17:11 | Hospitalist Progress Note ---
Date of Service February 13, 2020 Assessment & Plan (1) Pulmonary emboli: D dimer > 8000 CTA chest with right sided pulmonary emboli continue heparin drip will likely need Coumadin as BMI of 47 will rule out use of NOAC keep in ICU today (2) Acute respiratory failure with hypoxemia: multiple factors with acute right sided PE as well as multifocal pneumonia COVID and Biofire negative treat PE with heparin drip treat pneumonia with Cefepime and Zithromax currently on HFNC, try to wean as tolerated keep in ICU today (3) Seizure disorder: History of Seizure Disorder - No seizure in many years - Continue [employer] phenytoin, 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 (4) Hematuria: appreciate urology consult keep richmond catheter (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 Souza, will keep in ICU today, likely okay to be downgraded tomorrow reviewed chart, reviewed labs, WBC 10k, Hb 12.5, Plts 223 Cr 1.27, electrolytes stable patient denies chest pain/pressure, denies nausea/vomiting, has experienced some low grade temperatures Review of Systems Review of Systems: All systems reviewed & are unremarkable except as noted in Subjective Constitutional: + fever, + fatigue and + weakness Respiratory: + dyspnea and + dyspnea on exertion; no pain with cough and no sputum production Cardiovascular: no chest pain, no palpitations, no syncope and no edema Gastrointestinal: no abdominal pain, no nausea, no vomiting, no constipation and no diarrhea/loose stools Physical Exam Constitutional: well developed and + morbidly obese; no acute distress Eyes: PERRL, conjunctivae normal, anicteric sclerae ENMT: external ear and nose normal, oropharynx normal Neck: trachea midline, no thyromegaly Respiratory: + labored breathing and + tachypneic; no cough Auscultation: lungs clear to auscultation bilaterally and + diminished lung sounds (bases) Cardiovascular: Rate/Rhythm: regular rhythm and + tachycardic Heart Sounds: normal S1 and normal S2; no murmur Extremities: normal capillary refill; no edema Gastrointestinal (Abdomen): normal bowel sounds, soft, nontender, no hepatosplenomegaly Musculoskeletal: no cyanosis or clubbing, extremities motor strength 5/5 Skin: no rashes, warm and dry Neurologic: patellar DTR's 2+ bilat, sensation intact and PERRL, EOMI, accommodation nl, no face palsy, no dysarthria Psychiatric: A+Ox3, euthymic affect Lymphatic: no cervical or axillary lymphadenopathy Results & Data Results & Data ([facility]) Vital Signs (Past 12 Hours) Vital Signs Temp Pulse Pulse Resp BP Pulse Ox 02/13/20 14:00 107 H 29 H 126/89 91 02/13/20 13:00 101 H 26 H 104/74 89 L 02/13/20 12:00 37.5 C 107 H 24 134/84 91 02/13/20 11:09 77 18 91 02/13/20 11:00 37.6 C H 96 H 24 124/81 90 02/13/20 10:00 37.5 C 104 H 22 154/73 H 92 02/13/20 09:00 37.5 C 107 H 22 136/98 94 02/13/20 07:46 20 94 02/13/20 07:30 37.5 C 91 H 25 H 150/76 H 97 02/13/20 07:29 87 20 95 Laboratory Results Laboratory Results - last 24 hr 02/12/20 02/12/20 02/12/20 18:41 21:37 23:55 WBC 12.19 H RBC 3.99 L Hgb 12.9 L POC Hgb Hct 40.4 L POC Hct MCV 101.3 H MCH 32.3 MCHC 31.9 L RDW Std Deviation 56.9 H RDW Coeff of Hiwot 15.5 H Plt Count 218 MPV 9.9 Immature Gran % (Auto) 0.9 Neut % (Auto) 67.6 Lymph % (Auto) 14.5 Calhoun % (Auto) 14.4 Eos % (Auto) 2.3 Baso % (Auto) 0.3 Neut # (Auto) 8.24 H Lymph # (Auto) 1.77 Calhoun # (Auto) 1.75 H Eos # (Auto) 0.28 Baso # (Auto) 0.04 Immature Gran # (Auto) 0.11 H PT INR APTT 67.0 H* PTT Ratio 2.4 POC pH POC pCO2 POC pO2 POC HCO3 POC Total CO2 POC Base Excess POC ABG O2 Sat POC Sodium Sodium POC Potassium Potassium Chloride Carbon Dioxide Anion Gap BUN Creatinine Est Cr Clr Drug Dosing Est GFR ( Amer) Est GFR (Non-Af Amer) BUN/Creatinine Ratio Glucose POC Glucose 104 H Calcium Phosphorus Magnesium Procalcitonin 02/13/20 02/13/20 02/13/20 01:08 05:08 06:35 WBC 10.64 RBC 3.80 L Hgb 12.5 L POC Hgb 12.9 L Hct 38.7 L POC Hct 38 L MCV 101.8 H MCH 32.9 MCHC 32.3 RDW Std Deviation 57.2 H RDW Coeff of Hiwot 15.7 H Plt Count 223 MPV 9.6 Immature Gran % (Auto) 1.1 Neut % (Auto) 67.5 Lymph % (Auto) 16.0 Calhoun % (Auto) 11.2 Eos % (Auto) 3.9 Baso % (Auto) 0.3 Neut # (Auto) 7.18 H Lymph # (Auto) 1.70 Calhoun # (Auto) 1.19 H Eos # (Auto) 0.42 Baso # (Auto) 0.03 Immature Gran # (Auto) 0.12 H PT INR APTT PTT Ratio POC pH 7.36 POC pCO2 52 H POC pO2 91 POC HCO3 29 H POC Total CO2 31 POC Base Excess 4.0 H POC ABG O2 Sat 97.0 H POC Sodium 135 Sodium POC Potassium 4.1 Potassium Chloride Carbon Dioxide Anion Gap BUN Creatinine Est Cr Clr Drug Dosing Est GFR ( Amer) Est GFR (Non-Af Amer) BUN/Creatinine Ratio Glucose POC Glucose 98 Calcium Phosphorus Magnesium Procalcitonin 02/13/20 02/13/20 02/13/20 06:35 06:35 06:35 WBC RBC Hgb POC Hgb Hct POC Hct MCV MCH MCHC RDW Std Deviation RDW Coeff of Hiwot Plt Count MPV Immature Gran % (Auto) Neut % (Auto) Lymph % (Auto) Cal[place]oun % (Auto) Eos % (Auto) Baso % (Auto) Neut # (Auto) Lymph # (Auto) Calhoun # (Auto) Eos # (Auto) Baso # (Auto) Immature Gran # (Auto) PT 11.5 INR 1.1 APTT 45.3 H* PTT Ratio 1.6 POC pH POC pCO2 POC pO2 POC HCO3 POC Total CO2 POC Base Excess POC ABG O2 Sat POC Sodium Sodium 136 POC Potassium Potassium 4.2 Chloride 103 Carbon Dioxide 27 Anion Gap 6.0 BUN 21 H Creatinine 1.27 Est Cr Clr Drug Dosing 87.4 Est GFR ( Amer) 68.3 Est GFR (Non-Af Amer) 58.9 BUN/Creatinine Ratio 16.8 Glucose 104 H POC Glucose Calcium 7.8 L Phosphorus 3.5 Magnesium 2.4 Procalcitonin 0.07 02/13/20 02/13/20 02/13/20 07:16 10:52 14:19 WBC RBC Hgb POC Hgb Hct POC Hct MCV MCH MCHC RDW Std Deviation RDW Coeff of Hiwot Plt Count MPV Immature Gran % (Auto) Neut % (Auto) Lymph % (Auto) Calhoun % (Auto) Eos % (Auto) Baso % (Auto) Neut # (Auto) Lymph # (Auto) Calhoun # (Auto) Eos # (Auto) Baso # (Auto) Immature Gran # (Auto) PT INR APTT 47.0 H* PTT Ratio 1.7 POC pH POC pCO2 POC pO2 POC HCO3 POC Total CO2 POC Base Excess POC ABG O2 Sat POC Sodium Sodium POC Potassium Potassium Chloride Carbon Dioxide Anion Gap BUN Creatinine Est Cr Clr Drug Dosing Est GFR ( Amer) Est GFR (Non-Af Amer) BUN/Creatinine Ratio Glucose POC Glucose 111 H 227 H Calcium Phosphorus Magnesium Procalcitonin 02/13/20 16:31 WBC RBC Hgb POC Hgb Hct POC Hct MCV MCH MCHC RDW Std Deviation RDW Coeff of Hiwot Plt Count MPV Immature Gran % (Auto) Neut % (Auto) Lymph % (Auto) Calhoun % (Auto) Eos % (Auto) Baso % (Auto) Neut # (Auto) Lymph # (Auto) Calhoun # (Auto) Eos # (Auto) Baso # (Auto) Immature Gran # (Auto) PT INR APTT PTT Ratio POC pH POC pCO2 POC pO2 POC HCO3 POC Total CO2 POC Base Excess POC ABG O2 Sat POC Sodium Sodium POC Potassium Potassium Chloride Carbon Dioxide Anion Gap BUN Creatinine Est Cr Clr Drug Dosing Est GFR ( Amer) Est GFR (Non-Af Amer) BUN/Creatinine Ratio Glucose POC Glucose 100 H Calcium Phosphorus Magnesium Procalcitonin Medications Administered Current Inpatient Medications Acetaminophen (Acetaminophen 325 Mg Tab) 650 mg PO Q4H PRN PRN Reason: Fever Stop: 03/13/20 05:13 Last Admin: 02/12/20 21:56 Dose: 650 mg Documented by: Albuterol (Albut/Ipratrop 3mg/0.5mg Neb 3 Ml Vial) 3 ml INH Q4H PRN PRN Reason: Dyspnea Stop: 03/13/20 01:05 Calcitriol (Calcitriol 0.25 Mcg Capsule) 0.[facility] Stop: 03/13/20 08:59 Last Admin: 02/13/20 08:10 Dose: 0.5 mcg Documented by: Cefepime HCl 2,000 mg/ Syringe 20 mls @ 5.5 mls/min IV Q8H [facility]; Protocol Stop: 02/19/20 05:59 Last Admin: 02/13/20 13:15 Dose: 5.5 mls/min Documented by: Azithromycin 500 mg/ Dextrose 255 mls @ 127.5 mls/hr IV Q24H [facility]; Protocol Stop: 02/19/20 07:59 Last Infusion: 02/13/20 11:11 Dose: Infused Documented by: Heparin Sodium/Dextrose (Heparin Sodium/Dextrose) 25,000 units in 500 mls @ 41 mls/hr IV .[id number] [facility]; Protocol Stop: 03/13/20 17:29 Last Titration: 02/13/20 15:13 Dose: 2,050 units/hr, 41 mls/hr Documented by: Levothyroxine Sodium (Levothyroxine Sodium 25 Mcg Tablet) [facility] Stop: 03/13/20 06:29 Last Admin: 02/13/20 05:42 Dose: 25 mcg Documented by: Metoprolol Succinate (Metoprolol Succ 25mg Ext Rel Tab) 25 [facility] Stop: 03/13/20 08:59 Last Admin: 02/13/20 08:09 Dose: 25 mg Documented by: Miscellaneous (I[facility] Protocol For Hyperglycemia) 1 ea N/A PRN PRN; Protocol PRN Reason: Hyperglycemia Protocol Stop: 02/14/20 01:05 Phenobarbital (Phenobarbital 32.4 Mg Tab) 64.[address] [facility] Stop: 03/13/20 08:59 Last Admin: 02/13/20 08:13 Dose: 64.8 mg Documented by: Phenobarbital (Phenobarbital 32.4 Mg Tab) 97.[address] [facility] Stop: 03/13/20 20:59 Last Admin: 02/12/20 21:40 Dose: 97.2 mg Documented by: Phenytoin Sodium (Phenytoin Sodium Er 100 Mg Cap) 200 [facility] Stop: 03/15/20 08:59 Phenytoin Sodium (Phenytoin Sodium Er 100 Mg Cap) [address] 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
--- NOTE | 2020-02-14 05:55 | Critical Care Progress Note ---
Date of Service February 14, 2020 Assessment & Plan (1) Pulmonary emboli: 65-year-old male, poor historian unsure of exact pMHx. Presents to ICU as a direct transfer from OSH with pneumonia/acute on chronic hypercapnic hypoxemic respiratory failure on BiPAP. Right sided PE seen on CT w/ initial PESI score of 205 points with very high risk, overall improving clinical course. Neuro - - History seizure disordercontinue home phenytoin and 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 Cardiac - - sinus tachycardia, hemodynamically stable - Patient with recent prescriptions of Eliquis, Amiodarone, and MTP but patient is not compliant with his medications - continue Metoprolol - Will obtain echocardiogram as patient has bilateral lower extremity edema and elevated BNP - Monitor on telemetry Elevated troponin - no chest pain, EKG NSR without ST elevations - was downtrending, no longer trending Respiratory - Acute on chronic hypercapnic hypoxic respiratory failure with right sided PE noted on CT chest, along with bilateral upper lobe ground glass opacities concerning for multifocal pneumonia - COVID negative, MRSA negative, blood cultures no growth at 24 hours - on high flow NC, continue to wean as tolerable - ABG with findings of respiratory acidosis with compensation - Continuous monitoring on pulse ox - will obtain ECHO to further evaluate possible CHF - 40 mg IV Lasix given today PE - no right heart strain appreciated on CT, Hemodynamically stable - ECHO ordered, follow up results Pneumonia - per ID section Concern for ELIE - pt. refusing BiPAP overnight - consider outpatient sleep study GI - - low sodium diet RENAL/LYTES - - Creatinine within normal limits, slight elevation - continue to monitor Cr. and BUN - - Foleystrict I's and O's - blood in Pham while on heparin drip likely 2/2 catheterization - continue to monitor H&H ENDO - - No history of diabetes - ICU hyperglycemic protocol - TSH 2.94, continue daily 25 mcg Synthroid HEME - - H&H stable, monitor routine CBC's - started Coumadin since patient would be a poor candidate for NOAC's given body habitus - 10 mg Coumadin again today INR today: 1.2 - will continue Heparin for 5 days, until INR at goal ID - - initial concern for pneumonia Patient afebrile, leukocytosis, elevated CRP and d-dimer, lymphocytopenia, procalcitonin negative - bilateral patchy opacifications including apex - QuantiFERON gold testing pending - Blood cultures pending, bio fire negative - MRSA negative - discontinued Cefepime and Azithromycin LINES/IV ACCESS - - PIV DVT PROPHYLAXIS - - SCDs, heparin Admission and Anticipated Discharge Date Admission Date: February 12, 2020 Supervising Physician Co-Signing Physician Notes Dr. Flores was the resident-physician during care of patient. I separately evaluated patient for schuler portions of the history and the exam. I was present during the critical portion of medical decision making, and I discussed the case with the resident. I generally agree with the findings and plan except for any additions/exceptions noted. Continue heparin and warfarin for his pulmonary embolism. He will need 5 days of heparin with bridging towards a therapeutic INR with Coumadin. I went over anticoagulation options with this patient. Again, I think the only real feasible form of anticoagulation will be with Coumadin. He will need at least 6 months of anticoagulation. Obesity itself makes him prothrombotic. I think he is likely very sedentary at home. He will need a hypercoagulable work-up as an outpatient. Surprisingly, the echocardiogram did not demonstrate any significant right ventricular issues such as pulmonary hypertension. We did give him another dose of 40 mg IV Lasix as he does appear volume overloaded. He will need a sleep study as an outpatient. He is refusing to wear BiPAP in the hospital. The primary care notes also indicate that he has refused cardiology referral in the past and I suspect he has compliance issues with medications. We are titrating up his metoprolol to 50 mg daily given his tachycardia which is likely related to his acute pulmonary embolism. He also has some evidence of hypertension. I am discontinuing antibiotics as his procalcitonin was negative x2. I suspect the infiltrates seen are likely related to volume overload and evolving pulmonary infarcts. They should improve with time. Patient is stable to be transferred to the floor. Subjective Patient refused BiPAP overnight. He had a red dry skin on his face and he explained that he has psoriasis, but does not take any medication. He is unsure if he has has seen a internal grinder or had a echocardiogram in the past. His only question is when he can take the high flow mask off. PCP notes placed in chart - pt. was non compliant with his Eliquis for atrial fibrillation Review of Systems Review of Systems: Constitutional: denies fevers, chills Cardiac: denies chest pain, palpitations GI: denies nausea, vomiting Pulm: denies cough, shortness of breath Neuro: denies headache : Pham in place Physical Exam Constitutional: well developed and well nourished Eyes: PERRL, conjunctivae normal, anicteric sclerae Respiratory: - decreased breath sounds throughout - no increased work of breathing - normal vesicular sounds in all lung reed (improved from prior exam) Cardiovascular: - no murmur rubs rales - tachycardia - pitting edema of the lower extremity Gastrointestinal (Abdomen): - soft, nTTP, decreased bowel sounds, no masses Musculoskeletal: - right hand with traumatic amputation Skin: no rashes, warm and dry Psychiatric: Orientation: alert Genitourinary: - blood in Pham catheter Results & Data Results & Data ([facility]) Vital Signs (Past 12 Hours) Vital Signs Temp Pulse Pulse Resp BP Pulse Ox 02/14/20 04:38 37.4 C 94 H 24 144/75 H 90 02/14/20 03:38 37.6 C H 93 H 24 129/73 95 02/14/20 02:38 37.5 C 95 H 21 149/80 H 95 02/14/20 02:26 93 H 21 94 02/14/20 01:38 37.6 C H 100 H 24 128/82 94 02/14/20 00:38 37.6 C H 100 H 24 136/83 91 02/14/20 00:00 103 H 02/13/20 23:38 37.6 C H 103 H 24 137/77 96 02/13/20 22:38 37.7 C H 105 H 22 141/80 H 92 02/13/20 22:29 105 H 24 94 02/13/20 21:38 37.7 C H 106 H 24 128/83 94 02/13/20 21:01 36.7 C 02/13/20 20:38 37.8 C H 105 H 24 160/85 H 95 02/13/20 20:00 100 H 02/13/20 19:38 37.9 C H 102 H 102 H 24 134/78 99 02/13/20 18:30 37.8 C H 103 H 30 H 96 02/13/20 18:00 37.8 C H 107 H 28 H 98 CBC Results Results Complete Blood Count Results: RBC 3.82 M/uL (4.7-6.1) L 02/14/20 WBC 9.76 K/uL (4.8-10.8) 02/14/20 Hgb 12.5 g/dL (14.0-18.0) L 02/14/20 Hct 38.8 % (42-52) L 02/14/20 Plt Count 256 K/uL (130-400) 02/14/20 Chemistry ([facility]) Results [facility] Results: Sodium 137 mmol/L (136-145) 02/14/20 Potassium 4.2 mmol/L (3.5-5.1) 02/14/20 Chloride 102 mmol/L (98-107) 02/14/20 BUN 24 mg/dl (7-18) H 02/14/20 Creatinine 1.36 mg/dl (0.6-1.4) 02/14/20 Glucose 108 mg/dl (70-99) H 02/14/20 Resident Activity Tracking Resident Involvement: Resident Care Provided Care Provided: Adult [facility] Medicine
[2020-02-14 05:59] LABS: BUN Creatinine Ratio 17.9 (10-20); Basophils # (auto) 0.03 K/uL (0-0.2); Basophils % (auto) 0.3 %; Calcium 8.3 mg/dl (8.5-10.1); Creatinine Clr Calc Pharmacy 81.6 ml/min; Eosinophils # (auto) 0.56 K/uL (0-0.5); Eosinophils % (auto) 5.7 %; Est GFR (African American) 62.8; Est GFR (Non-African American) 54.2; Hematocrit (blood only) 38.8 % (42-52); Hemoglobin 12.5 g/dL (14.0-18.0); Immature Granulocytes # (auto) 0.11 K/uL (0.00-0.02); Immature Granulocytes % (auto) 1.1 %; Lymphocytes # (auto) 1.39 K/uL (1.2-3.4); Lymphocytes % (auto) 14.2 %; Magnesium 2.4 mg/dl (1.8-2.4); Mean Corpuscular Hemoglobin 32.7 pg (25-34); Mean Corpuscular Hgb Conc 32.2 g/dL (32-36); Mean Corpuscular Volume 101.6 fL (80-100); Mean Platelet Volume 9.8 fL (7.4-10.4); Monocytes # (auto) 0.92 K/uL (0.11-0.59); Monocytes % (auto) 9.4 %; Neutrophils # (auto) 6.75 K/uL (1.4-6.5); Neutrophils % (auto) 69.3 %; Platelet Count 256 K/uL (130-400); Potassium 4.2 mmol/L (3.5-5.1); RDW Coefficient of Variation 15.8 % (11.5-14.5); RDW Standard Deviation 58.1 fL (36.4-46.3); Red Blood Count 3.82 M/uL (4.7-6.1); White Blood Count 9.76 K/uL (4.8-10.8)
[2020-02-14 06:00] LABS: Phosphorus 3.1 mg/dl (2.5-4.9)
[2020-02-14 06:02] LABS: INR 1.2 (0.9-1.1); Prothrombin Time 12.9 Seconds (9.0-12.0)
[2020-02-14] MEDS: LEVOTHYROXINE SODIUM 25 MCG TABLET PO SCH (06:08)
[2020-02-14] MEDS: CEFEPIME 2,000 MG in SYRINGE 7.5 ML IV SCH ×3 (06:09→21:48)
[2020-02-14] MEDS: HEPARIN SODIUM/DEXTROSE 25,000 UNITS/500 ML BAG IV SCH ×2 (06:11→18:34)
[2020-02-14 06:13] LABS: Partial Thromboplastin Time 55.9 Seconds (21.0-31.0)
[2020-02-14] MEDS: AZITHROMYCIN 500 MG in DEXTROSE 5% 250 ML IV SCH (08:03)
[2020-02-14] MEDS: PHENYTOIN SODIUM ER 100 MG CAP PO SCH ×2 (08:03→20:21)
[2020-02-14] MEDS: CALCITRIOL 0.25 MCG CAPSULE PO SCH (08:04)
[2020-02-14] MEDS: METOPROLOL SUCC 25MG EXT REL TAB PO SCH (08:04)
--- NOTE | 2020-02-14 08:31 | XRay Report ---
XR chest 1V portable CLINICAL HISTORY: Pneumonia COMPARISON STUDY: 02/13/2020 FINDINGS: The heart remains enlarged. There are persistent bilateral pulmonary airspace opacities. Th ere are no pleural effusions.[ IMPRESSION: Persistent bilateral pulmonary airspace opacities. ACT 112: Negative or not required by law. Electronically signed by: Pietro Jones M.D. 02/14/2020 8:30 AM
[2020-02-14] MEDS ORDERED: FUROSEMIDE 40 MG in SYRINGE 0 ML IV ONE (09:15)
[2020-02-14] MEDS ORDERED: METOPROLOL SUCC 25MG EXT REL TAB PO ONE (10:00)
[2020-02-14] MEDS ORDERED: WARFARIN SOD 10 MG TAB PO ONE (10:00)
--- NOTE | 2020-02-14 11:20 | XCELERA ---
[id number]
--- NOTE | 2020-02-14 16:51 | Hospitalist Progress Note ---
Date of Service February 14, 2020 Assessment & Plan (1) Pulmonary emboli: D dimer > 8000 CTA chest with right sided pulmonary emboli continue heparin drip, started on Coumadin INR is only 1.2 today follow INR daily transfer to PCU will need two days bridge with heparin once INR therapeutic consult PT/OT, may need rehab after hospitalization (2) Acute respiratory failure with hypoxemia: multiple factors with acute right sided PE as well as multifocal pneumonia COVID and Biofire negative treat PE with heparin drip, started on Coumadin treat pneumonia with Cefepime and Zithromax currently improved on oxymask plan to transfer to PCU needs 7 days total antibiotics (3) Seizure disorder: History of Seizure Disorder - No seizure in many years - 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, 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 (4) Hematuria: appreciate urology consult keep richmond catheter plan for voiding trial and follow up outpatient (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: (6) Pneumonia: see above treat with Cefepime and Zithromax will some low grade temperatures, could be due to thrombus as well WBC normal, dry cough (7) Psoriasis: Admission and Anticipated Discharge Date Admission Date: February 12, 2020 Subjective patient breathing better, still having low grade temperatures no chest pain, no pain with deep inspiration, having some coughing spells eating well, no issues he is sleeping most of the day reviewed labs, Hb 12.5, WBC 9, plts 256 INR 1.2 this morning after starting on Coumadin Cr stable at 1.35 and electrolytes stable discussed plan with master Mcneil for transfer out of ICU to PCU some concerns about whether he will be compliant with Coumadin he had been prescribed Eliquis in the past and refused to take it, major issues with compliance, poor follow up as outpatient will discuss further with his POA Review of Systems Review of Systems: All systems reviewed & are unremarkable except as noted in Subjective Constitutional: + fever, + fatigue and + weakness Respiratory: + cough, + dyspnea and + dyspnea on exertion; no pain on inspiration and no wheezing Cardiovascular: no chest pain and no edema Gastrointestinal: no abdominal pain, no nausea, no vomiting, no constipation and no diarrhea/loose stools Physical Exam Constitutional: well developed and + morbidly obese; no acute distress Eyes: PERRL, conjunctivae normal, anicteric sclerae ENMT: external ear and nose normal, oropharynx normal Neck: trachea midline, no thyromegaly Respiratory: + tachypneic; no respiratory distress and no cough Auscultation: lungs clear to auscultation bilaterally and + diminished lung sounds (bases) Cardiovascular: Rate/Rhythm: regular rhythm and + tachycardic Heart Sounds: normal S1 and normal S2; no murmur Extremities: normal capillary refill; no edema Gastrointestinal (Abdomen): normal bowel sounds, soft, nontender, no hepatosplenomegaly Musculoskeletal: no cyanosis or clubbing, extremities motor strength 5/5 Skin: no rashes, warm and dry Neurologic: patellar DTR's 2+ bilat, sensation intact and PERRL, EOMI, accommodation nl, no face palsy, no dysarthria Psychiatric: A+Ox3, euthymic affect Lymphatic: no cervical or axillary lymphadenopathy Results & Data Results & Data ([facility]) Vital Signs (Past 12 Hours) Vital Signs Temp Pulse Pulse Resp BP Pulse Ox 02/14/20 14:00 37.5 C 95 H 26 H 92 02/14/20 13:00 37.4 C 95 H 25 H 97 02/14/20 12:00 37.4 C 96 H 29 H 96 02/14/20 11:39 37.4 C 88 24 94 02/14/20 11:38 37.4 C 88 26 H 113/81 91 02/14/20 11:00 37.4 C 92 H 20 95 02/14/20 10:38 37.3 C 102 H 23 111/88 97 02/14/20 10:00 37.3 C 101 H 25 H 96 02/14/20 09:39 37.3 C 102 H 32 H 94 02/14/20 09:38 37.3 C 103 H 24 138/88 93 02/14/20 09:06 98 H 94 02/14/20 09:00 37.2 C 100 H 28 H 90 02/14/20 08:38 37.3 C 107 H 27 H 134/88 91 02/14/20 08:00 37.2 C 113 H 32 H 93 02/14/20 07:38 37.2 C 105 H 22 149/114 H 91 02/14/20 07:35 87 18 91 02/14/20 06:38 37.2 C 91 H 21 138/82 92 02/14/20 05:38 37.3 C 97 H 21 116/84 94 Laboratory Results Laboratory Results - last 24 hr 02/13/20 02/14/20 02/14/20 23:21 05:28 05:28 WBC 9.76 RBC 3.82 L Hgb 12.5 L Hct 38.8 L MCV 101.6 H MCH 32.7 MCHC 32.2 RDW Std Deviation 58.1 H RDW Coeff of Hiwot 15.8 H Plt Count 256 MPV 9.8 Immature Gran % (Auto) 1.1 Neut % (Auto) 69.3 Lymph % (Auto) 14.2 [place] % (Auto) 9.4 Eos % (Auto) 5.7 Baso % (Auto) 0.3 Neut # (Auto) 6.75 H Lymph # (Auto) 1.39 [place] # (Auto) 0.92 H Eos # (Auto) 0.56 H Baso # (Auto) 0.03 Immature Gran # (Auto) 0.11 H PT INR APTT PTT Ratio Sodium 137 Potassium 4.2 Chloride 102 Carbon Dioxide 30 Anion Gap 5.0 BUN 24 H Creatinine 1.36 Est Cr Clr Drug Dosing 81.6 Est GFR ( Amer) 62.8 Est GFR (Non-Af Amer) 54.2 BUN/Creatinine Ratio 17.9 Glucose 108 H POC Glucose 107 H Calcium 8.3 L Phosphorus 3.1 Magnesium 2.4 02/14/20 05:28 WBC RBC Hgb Hct MCV MCH MCHC RDW Std Deviation RDW Coeff of [place]ot Plt Count MPV Immature Gran % (Auto) Neut % (Auto) Lymph % (Auto) [place] % (Auto) Eos % (Auto) Baso % (Auto) Neut # (Auto) Lymph # (Auto) [place] # (Auto) Eos # (Auto) Baso # (Auto) Immature Gran # (Auto) PT 12.9 H INR 1.2 H APTT 55.9 H* PTT Ratio 2.0 Sodium Potassium Chloride Carbon Dioxide Anion Gap BUN Creatinine Est Cr Clr Drug Dosing Est GFR ( Amer) Est GFR (Non-Af Amer) BUN/Creatinine Ratio Glucose POC Glucose Calcium Phosphorus Magnesium Medications Administered Current Inpatient Medications Acetaminophen (Acetaminophen 325 Mg Tab) 650 mg PO Q4H PRN PRN Reason: Fever Stop: 03/13/20 05:13 Last Admin: 02/12/20 21:56 Dose: 650 mg Documented by: Albuterol (Albut/Ipratrop 3mg/0.5mg Neb 3 Ml Vial) 3 ml INH Q4H PRN PRN Reason: Dyspnea Stop: 03/13/20 01:05 Calcitriol (Calcitriol 0.25 Mcg Capsule) [facility] [place]: 03/13/20 08:59 Last Admin: 02/14/20 08:04 Dose: 0.5 mcg Documented by: Cefepime HCl 2,000 mg/ Syringe 20 mls @ 5.5 mls/min IV Q8H [facility]; Protocol Stop: 02/19/20 05:59 Last Admin: 02/14/20 13:58 Dose: 5.5 mls/min Documented by: Heparin Sodium/Dextrose (Heparin Sodium/Dextrose) 25,000 units in 500 mls @ 41 mls/hr IV .[id number] [facility]; Protocol Stop: 03/13/20 17:29 Last Titration: 02/14/20 07:03 Dose: 2,050 units/hr, 41 mls/hr Documented by: Levothyroxine Sodium (Levothyroxine Sodium 25 Mcg Tablet) [facility]: 03/13/20 06:29 Last Admin: 02/14/20 06:08 Dose: 25 mcg Documented by: Metoprolol Succinate (Metoprolol Succ 50mg Ext Rel Tab) 50 mg PO [facility] Stop: 03/16/20 08:59 Phenobarbital (Phenobarbital 32.4 Mg Tab) 64.8 mg PO DAILY [facility] Stop: 03/13/20 08:59 Last Admin: 02/14/20 08:06 Dose: 64.8 mg Documented by: Phenobarbital (Phenobarbital 32.4 Mg Tab) 97.2 mg PO [facility] Stop: 03/13/20 20:59 Last Admin: 02/13/20 21:13 Dose: 97.2 mg Documented by: Phenytoin Sodium (Phenytoin Sodium Er 100 Mg Cap) 200 mg PO [facility] Stop: 03/15/20 08:59 Last Admin: 02/14/20 08:03 Dose: 200 mg Documented by: Phenytoin Sodium (Phenytoin Sodium Er 100 Mg Cap) 300 mg PO [facility] Stop: 03/14/20 20:59 Last Admin: 02/13/20 21:12 Dose: 300 mg Documented by: PG Care Time/CCT Total # of Minutes Spent Total Time Spent with Patient: Total time spent is greater than 50% in coordination of care (as documented) at patient's floor/unit and/or counseling patient: Coding Level of Care Code 10496 Subseq Hosp Care Lvl 3 Diagnoses Pulmonary emboli I26.99 Acute respiratory failure with hypoxemia J96.01 Seizure disorder G40.909 Hematuria R31.9 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
[2020-02-14 16:53] LABS: Quantiferon NIL 0.02 IU/mL; Quantiferon TB Gold Plus NEGATIVE (NEGATIVE)
--- NOTE | 2020-02-14 17:44 | Billing Data ---
Date of Service February 14, 2020 Coding Level of Care Code 39629 Subseq Hosp Care Lvl 3
--- NOTE | 2020-02-14 18:43 | Student Report ---
[facility] Med Student Progress Note <Lamar Carmichael - Last Filed: 02/14/20 19:49> Date of Service Date of service: February 14, 2020 Subjective Subjective: Mr. Fregoso is a 65M currently undergoing care in ICU for acute respiratory failure with hypoxemia and pulmonary emboli. This morning he feels better in that he's breathing better. Denies any shortness of breath or chest pain. Urinating w/ richmond, blood still in urine. ROS ROS: No cough. No SOB. No CP. No dysuria. Blood in urine. Physical Exam Physical Exam: General Appearance: well developed, obese, no acute distress Respiratory: Tachypneic, diminished lung sounds throughout, Cardiovascular: RRR, +tachy, no rubs, murmurs, gallops. Nml cap refill. No edema. GI: Soft, non-distended Psych: A&Ox3 Results Results: Vital Signs Height Weight Body Mass Index Blood Pressure Temperature Temperature Source Pulse Rate 5 ft 11 in 153.2 kg 47.6 137/79 37.6 C H Oral 103 H 02/12/20 01:07 02/14/20 06:16 02/12/20 01:07 02/14/20 17:38 02/14/20 18:00 02/13/20 21:01 02/14/20 18:00 Respiratory Rate Pulse Oximetry Oxygen Flow Rate 23 94 3 02/14/20 18:00 02/14/20 18:00 02/14/20 14:00 Blood Cultures: No growth 02/13 WBC: 9.76 Hgb: 12.5 Hct: 38.8 Plt: 256 PT: 12.9 INR: 1.2 APTT: 55.9 A&P A&P: 1. Pulmonary Embolism: On admission, CTA showed right sided pulmonary emboli. D dimer > 8000. No NOACs d/t BMI. -Cont IV heparin drip for 5 days, target INR 2-3 -Will need Coumadin (warfarin) on discharge -Patient education on importance of coumadin -Assess for step-down, get PT/OT eval -Case management consulted with eventual plan for rehab on discharge 2. Acute respiratory failure w/ hypoxemia: Etiology likely due to PE and multifocal pneumonia. -IV Abx 7 days- Cefepime and Azithromycin -Russel O2, HFNC/mask as needed, maintain sats in 90s -PE treatment as above -Concern for ELIE, patient refusing BiPAP, use if patient agreeable 3. Seizure disorder: History of seizure disorder -Cont home phenobarital, phenytoin 4. Hematuria: Yesterday 02/12 and this morning, patient with bright red urine seen in richmond bag. Later this afternoon, urine looking clear.
[2020-02-14 19:51] LABS: BUN Creatinine Ratio 19.2 (10-20); Calcium 8.4 mg/dl (8.5-10.1); Creatinine Clr Calc Pharmacy 82.1 ml/min; Est GFR (African American) 63.4; Est GFR (Non-African American) 54.7; Potassium 4.6 mmol/L (3.5-5.1)
[2020-02-15 05:19] LABS: Basophils # (auto) 0.03 K/uL (0-0.2); Basophils % (auto) 0.3 %; Eosinophils # (auto) 0.61 K/uL (0-0.5); Eosinophils % (auto) 5.8 %; Hematocrit (blood only) 39.2 % (42-52); Hemoglobin 12.6 g/dL (14.0-18.0); Immature Granulocytes # (auto) 0.16 K/uL (0.00-0.02); Immature Granulocytes % (auto) 1.5 %; Lymphocytes % (auto) 17.2 %; Mean Corpuscular Hemoglobin 33.2 pg (25-34); Mean Corpuscular Hgb Conc 32.1 g/dL (32-36); Mean Corpuscular Volume 103.2 fL (80-100); Mean Platelet Volume 9.6 fL (7.4-10.4); Monocytes # (auto) 0.88 K/uL (0.11-0.59); Monocytes % (auto) 8.4 %; Neutrophils # (auto) 6.97 K/uL (1.4-6.5); Neutrophils % (auto) 66.8 %; Platelet Count 275 K/uL (130-400); RDW Coefficient of Variation 15.5 % (11.5-14.5); RDW Standard Deviation 58.7 fL (36.4-46.3); White Blood Count 10.45 K/uL (4.8-10.8)
[2020-02-15 05:36] LABS: BUN Creatinine Ratio 18.1 (10-20); Calcium 8.2 mg/dl (8.5-10.1); Creatinine Clr Calc Pharmacy 82.8 ml/min; Est GFR (Non-African American) 55.2; Potassium 4.3 mmol/L (3.5-5.1)
[2020-02-15 05:43] LABS: INR 2.1 (0.9-1.1); Partial Thromboplastin Ratio 3.3; Prothrombin Time 20.9 Seconds (9.0-12.0)
[2020-02-15 06:01] LABS: Partial Thromboplastin Time 92.8 Seconds (21.0-31.0)
[2020-02-15] MEDS: CEFEPIME 2,000 MG in SYRINGE 7.5 ML IV SCH ×3 (06:16→22:34)
[2020-02-15] MEDS: LEVOTHYROXINE SODIUM 25 MCG TABLET PO SCH (06:17)
[2020-02-15] MEDS: HEPARIN SODIUM/DEXTROSE 25,000 UNITS/500 ML BAG IV SCH ×2 (06:52→23:30)
[2020-02-15] MEDS: PHENYTOIN SODIUM ER 100 MG CAP PO SCH ×2 (08:22→19:49)
[2020-02-15] MEDS: METOPROLOL SUCC 50MG EXT REL TAB PO SCH (08:22)
[2020-02-15] MEDS: CALCITRIOL 0.25 MCG CAPSULE PO SCH (08:23)
[2020-02-15] MEDS: POLYETHYLENE (MIRALAX) 17 GM PACK PO SCH (12:02)
[2020-02-15 13:12] LABS: Partial Thromboplastin Ratio 2.6
--- NOTE | 2020-02-15 13:20 | Student Report ---
[facility] Med Student Progress Note <Lamar Carmichael - Last Filed: 02/15/20 15:53> Date of Service Date of service: February 15, 2020 Subjective Subjective: This morning Mr. Fregoso reports he's feeling well- no shortness of breath, no chest pain, no abdominal pain. Only concern this morning is that his catheter feels uncomfortable "like it's clogged" but denies any pain. Urine appears red with clots but has recently been clearing. Mr. Fregoso also noted that his last bowel movement was last Wednesday, but denies any abominal pain. Vitals have remained stable with good improvement in blood pressure. Satting mid-90s on 3 L of Oxymask. INR today at 2.1 ROS ROS: No SOB. No CP. No fever. No chills. No abdominal pain. Physical Exam Physical Exam: General Appearance: Well developed, obese, no acute distress Eyes: PERRL, EOMI. Fundi normal, vision is grossly intact. Ears: External auditory canals and tympanic membranes clear, hearing grossly intact. Nose: No nasal discharge. Cardiac: Normal S1 and S2. No S3, S4 or murmurs. Rhythm is regular. There is no peripheral edema, cyanosis or pallor. Extremities are warm and well perfused. Lungs: Diminished lung sounds, tachypneic Abdomen: abdomen first, distended Skin: Dry skin Psychiatric: A&Ox3. Results Results: PT: 20.9 PTT: 92.8 INR: 2.1 Vital Signs Height Weight Body Mass Index Blood Pressure Temperature Temperature Source Pulse Rate 5 ft 11 in 153.1 kg 47.6 104/80 37.4 C Oral 103 H 02/12/20 01:07 02/15/20 06:25 02/12/20 01:07 02/15/20 12:02 02/15/20 12:02 02/13/20 21:01 02/15/20 12:02 Respiratory Rate Pulse Oximetry Oxygen Flow Rate 38 H 95 3 02/15/20 12:02 02/15/20 12:02 02/15/20 12:02 A&P A&P: 1. Pulmonary Embolism: On admission, CTA showed right sided pulmonary emboli. D dimer > 8000. No NOACs d/t BMI. Supratherapeutic haparin value; recheck today. Hold coumadin today due to improved INR (2.1 today). -Cont IV heparin drip for 5 days, target INR 2-3 -Will need Coumadin (warfarin) on discharge -Patient education on importance of coumadin -PT/OT evaluation -Case management consulted with eventual plan for rehab on discharge 2. Acute respiratory failure w/ hypoxemia: Etiology likely due to PE and multifocal pneumonia. -IV Abx 7 days- Cefepime and Azithromycin -Russel O2, HFNC/mask as needed, maintain sats in 90s, wean as able -PE treatment as above -Concern for ELIE, patient refusing BiPAP, use if patient agreeable 3. Seizure disorder: History of seizure disorder -Cont home phenobarital, phenytoin 4. Hematuria: Today 02/14 urine earlier bright red with clots, clearing later. Uro rec f/u as outpatient. -Outpt uro f/u for hematuria -Possible voiding trial -Keep richmond catheter 5. Constipation: Last BM 6 days ago; patient says he goes 2-5 times/week. No pain. Good appetite. Eating full meals. -Schedule Mirilax daily; d/c until BM seen
[2020-02-15 13:38] LABS: Partial Thromboplastin Time 72.7 Seconds (21.0-31.0)
--- NOTE | 2020-02-15 15:54 | Hospitalist Progress Note ---
Date of Service February 15, 2020 Assessment & Plan (1) Pulmonary emboli: D dimer > 8000 CTA chest with right sided pulmonary emboli continue heparin drip, started on Coumadin INR is 2.1 today, hold Coumadin and check INR in the morning follow INR daily transfer to PCU will need two days bridge with heparin once INR therapeutic consult PT/OT, may need rehab after hospitalization HR is better today, no respiratory distress (2) Acute respiratory failure with hypoxemia: multiple factors with acute right sided PE as well as multifocal pneumonia COVID and Biofire negative, Quantiferon gold negative treat PE with heparin drip, started on Coumadin, INR is now 2.1 treat pneumonia with Cefepime and Zithromax for 7 and 5 days respectively currently improved on oxymask transfer to PCU (3) Seizure disorder: History of Seizure Disorder - No seizure in many years - Continue [employer] phenytoin, 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 (4) Hematuria: appreciate urology consult keep richmond catheter plan for voiding trial prior to discharge and follow up outpatient would need hematuria worked up (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: (6) Pneumonia: see above treat with Cefepime and Zithromax no fever today WBC normal, dry cough (7) Psoriasis: Admission and Anticipated Discharge Date Admission Date: February 12, 2020 Subjective patient doing okay, no changes over night eating well, no BM yet but he has flatus breathing stable, no cough, no chest pain/pressure, no nausea, no fever/chills reviewed labs, INR 2.1 after two doses of Coumadin 10mg, hold Coumadin have had questions about patient's capacity to understand what is going on asked him why he was in the hospital, he appropriately answer that he has a blood clot in his lung I asked him what Coumadin is for, he appropriately said that it treats the blood clot when asked what would happen if he stopped Coumadin, he correctly said he would get another clot, could Review of Systems Review of Systems: All systems reviewed & are unremarkable except as noted in Subjective Respiratory: + dyspnea on exertion Gastrointestinal: + constipation Physical Exam Constitutional: well developed and + morbidly obese; no acute distress Eyes: PERRL, conjunctivae normal, anicteric sclerae ENMT: external ear and nose normal, oropharynx normal Neck: trachea midline, no thyromegaly Respiratory: + tachypneic; no respiratory distress and no cough Auscultation: lungs clear to auscultation bilaterally and + diminished lung sounds (bases) Cardiovascular: Rate/Rhythm: regular rhythm and + tachycardic Heart Sounds: normal S1 and normal S2; no murmur Extremities: normal capillary refill; no edema Gastrointestinal (Abdomen): normal bowel sounds, soft, nontender, no hepatosplenomegaly Musculoskeletal: no cyanosis or clubbing, extremities motor strength 5/5 Skin: no rashes, warm and dry Neurologic: patellar DTR's 2+ bilat, sensation intact and PERRL, EOMI, accommodation nl, no face palsy, no dysarthria Psychiatric: A+Ox3, euthymic affect Lymphatic: no cervical or axillary lymphadenopathy Results & Data Results & Data ([facility]) Vital Signs (Past 12 Hours) Vital Signs Temp Pulse Resp BP Pulse Ox 02/15/20 12:02 37.4 C 103 H 38 H 104/80 95 02/15/20 12:00 37.4 C 105 H 24 02/15/20 11:00 37.2 C 85 27 H 92 02/15/20 10:00 37.3 C 92 H 28 H 92 02/15/20 09:50 37.3 C 96 H 21 128/80 90 02/15/20 09:00 37.3 C 111 H 29 H 95 02/15/20 08:00 37.2 C 103 H 28 H 93 02/15/20 07:50 37.2 C 102 H 28 H 138/90 95 02/15/20 07:00 37.2 C 88 23 95 02/15/20 05:50 37.2 C 89 25 H 133/78 94 02/15/20 04:16 37.2 C 86 24 123/73 94 Laboratory Results Laboratory Results - last 24 hr 02/12/20 02/14/20 02/15/20 04:40 19:17 05:11 WBC RBC Hgb Hct MCV MCH MCHC RDW Std Deviation RDW Coeff of Hiwot Plt Count MPV Immature Gran % (Auto) Neut % (Auto) Lymph % (Auto) [place] % (Auto) Eos % (Auto) Baso % (Auto) Neut # (Auto) Lymph # (Auto) [place] # (Auto) Eos # (Auto) Baso # (Auto) Immature Gran # (Auto) PT 20.9 H INR 2.1 H APTT 92.8 H* PTT Ratio 3.3 Sodium 135 L Potassium 4.6 Chloride 99 Carbon Dioxide 30 Anion Gap 6.0 BUN 26 H Creatinine 1.35 Est Cr Clr Drug Dosing 82.1 Est GFR ( Amer) 63.4 Est GFR (Non-Af Amer) 54.7 BUN/Creatinine Ratio 19.2 Glucose 126 H Calcium 8.4 L TB Test (QFT) Gold Plus NEGATIVE TB Test (QFT) Nil 0.02 TB Test Mitogen - Nil 1.90 TB Test Ag - Nil 1 0.00 TB Test Ag - Nil 2 0.00 02/15/20 02/15/20 02/15/20 05:11 05:11 12:28 WBC 10.45 RBC 3.80 L Hgb 12.6 L Hct 39.2 L MCV 103.2 H MCH 33.2 MCHC 32.1 RDW Std Deviation 58.7 H RDW Coeff of Hiwot 15.5 H Plt Count 275 MPV 9.6 Immature Gran % (Auto) 1.5 Neut % (Auto) 66.8 Lymph % (Auto) 17.2 [place] % (Auto) 8.4 Eos % (Auto) 5.8 Baso % (Auto) 0.3 Neut # (Auto) 6.97 H Lymph # (Auto) 1.80 [place] # (Auto) 0.88 H Eos # (Auto) 0.61 H Baso # (Auto) 0.03 Immature Gran # (Auto) 0.16 H PT INR APTT 72.7 H* PTT Ratio 2.6 Sodium 137 Potassium 4.3 Chloride 100 Carbon Dioxide 33 H Anion Gap 4.0 BUN 24 H Creatinine 1.34 Est Cr Clr Drug Dosing 82.8 Est GFR ( Amer) 64.0 Est GFR (Non-Af Amer) 55.2 BUN/Creatinine Ratio 18.1 Glucose 94 Calcium 8.2 L TB Test (QFT) Gold Plus TB Test (QFT) Nil TB Test Mitogen - Nil TB Test Ag - Nil 1 TB Test Ag - Nil 2 Medications Administered Current Inpatient Medications Acetaminophen (Acetaminophen 325 Mg Tab) 650 mg PO Q4H PRN PRN Reason: Fever Stop: 03/13/20 05:13 Last Admin: 02/12/20 21:56 Dose: 650 mg Documented by: Albuterol (Albut/Ipratrop 3mg/0.5mg Neb 3 Ml Vial) 3 ml INH Q4H PRN PRN Reason: Dyspnea Stop: 03/13/20 01:05 Calcitriol (Calcitriol 0.25 Mcg Capsule) 0.[facility] Stop: 03/13/20 08:59 Last Admin: 02/15/20 08:23 Dose: 0.5 mcg Documented by: Cefepime HCl 2,000 mg/ Syringe 20 mls @ 5.5 mls/min IV Q8H [facility]; Protocol Stop: 02/19/20 05:59 Last Admin: 02/15/20 06:16 Dose: 5.5 mls/min Documented by: Heparin Sodium/Dextrose (Heparin Sodium/Dextrose) 25,000 units in 500 mls @ 35 mls/hr IV .[id number] [facility]; Protocol Stop: 03/13/20 17:29 Last Titration: 02/15/20 14:09 Dose: 1,750 units/hr, 35 mls/hr Documented by: Levothyroxine Sodium (Levothyroxine Sodium 25 Mcg Tablet) [facility] Stop: 03/13/20 06:29 Last Admin: 02/15/20 06:17 Dose: 25 mcg Documented by: Metoprolol Succinate (Metoprolol Succ 50mg Ext Rel Tab) 50 mg PO [facility] Stop: 03/16/20 08:59 Last Admin: 02/15/20 08:22 Dose: 50 mg Documented by: Phenobarbital (Phenobarbital 32.4 Mg Tab) 64.8 mg PO DAILY [facility] Stop: 03/13/20 08:59 Last Admin: 02/15/20 08:26 Dose: 64.8 mg Documented by: Phenobarbital (Phenobarbital 32.4 Mg Tab) 97.2 mg PO [facility] Stop: 03/13/20 20:59 Last Admin: 02/14/20 20:23 Dose: 97.2 mg Documented by: Phenytoin Sodium (Phenytoin Sodium Er 100 Mg Cap) 200 mg PO [facility] Stop: 03/15/20 08:59 Last Admin: 02/15/20 08:22 Dose: 200 mg Documented by: Phenytoin Sodium (Phenytoin Sodium Er 100 Mg Cap) 300 mg PO [facility] Stop: 03/14/20 20:59 Last Admin: 02/14/20 20:21 Dose: 300 mg Documented by: Polyethylene Glycol (Polyethylene (Miralax) 17 Gm Pack) 17 gm PO DAILY [facility] Stop: 03/16/20 10:59 Last Admin: 02/15/20 12:02 Dose: 17 gm Documented by: PG Care Time/CCT Total # of Minutes Spent Total Time Spent with Patient: Total time spent is greater than 50% in coordination of care (as documented) at patient's floor/unit and/or counseling patient: Coding Level of Care Code 90314 Subseq Hosp Care Lvl 3 Diagnoses Pulmonary emboli I26.99 Acute respiratory failure with hypoxemia J96.01 Seizure disorder G40.909 Hematuria R31.9 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
[2020-02-15 22:12] LABS: INR 2.4 (0.9-1.1)
[2020-02-15] MEDS ORDERED: HEPARIN IV BOLUS 9,000 UNITS in SYRINGE 0 ML IV ONE (22:22)
[2020-02-16] MEDS: HEPARIN SODIUM/DEXTROSE 25,000 UNITS/500 ML BAG IV SCH ×2 (00:40→07:18)
[2020-02-16] MEDS: CEFEPIME 2,000 MG in SYRINGE 7.5 ML IV SCH ×3 (06:07→22:17)
[2020-02-16] MEDS: LEVOTHYROXINE SODIUM 25 MCG TABLET PO SCH (06:07)
[2020-02-16 06:33] LABS: Basophils # (auto) 0.03 K/uL (0-0.2); Basophils % (auto) 0.3 %; Eosinophils # (auto) 0.53 K/uL (0-0.5); Hematocrit (blood only) 41.3 % (42-52); Immature Granulocytes # (auto) 0.19 K/uL (0.00-0.02); Immature Granulocytes % (auto) 1.8 %; Lymphocytes # (auto) 1.86 K/uL (1.2-3.4); Lymphocytes % (auto) 17.5 %; Mean Corpuscular Hemoglobin 32.8 pg (25-34); Mean Corpuscular Hgb Conc 31.5 g/dL (32-36); Mean Corpuscular Volume 104.3 fL (80-100); Mean Platelet Volume 9.9 fL (7.4-10.4); Monocytes # (auto) 1.71 K/uL (0.11-0.59); Monocytes % (auto) 16.1 %; Neutrophils # (auto) 6.33 K/uL (1.4-6.5); Neutrophils % (auto) 59.3 %; Platelet Count 271 K/uL (130-400); RDW Coefficient of Variation 15.6 % (11.5-14.5); RDW Standard Deviation 59.5 fL (36.4-46.3); Red Blood Count 3.96 M/uL (4.7-6.1); White Blood Count 10.65 K/uL (4.8-10.8)
[2020-02-16 06:46] LABS: INR 2.2 (0.9-1.1); Partial Thromboplastin Ratio 1.5; Partial Thromboplastin Time 41.4 Seconds (21.0-31.0)
[2020-02-16 07:00] LABS: BUN Creatinine Ratio 22.9 (10-20); Calcium 9.1 mg/dl (8.5-10.1); Creatinine Clr Calc Pharmacy 103.6 ml/min; Est GFR (Non-African American) 72.5; Potassium 4.5 mmol/L (3.5-5.1)
[2020-02-16] MEDS ORDERED: HEPARIN IV BOLUS 4,000 UNITS in SYRINGE 0 ML IV ONE (07:00)
[2020-02-16] MEDS: PHENYTOIN SODIUM ER 100 MG CAP PO SCH ×2 (09:56→20:16)
[2020-02-16] MEDS: CALCITRIOL 0.25 MCG CAPSULE PO SCH (09:57)
[2020-02-16] MEDS: METOPROLOL SUCC 50MG EXT REL TAB PO SCH (09:57)
[2020-02-16] MEDS: POLYETHYLENE (MIRALAX) 17 GM PACK PO SCH ×2 (09:57→20:16)
--- NOTE | 2020-02-16 11:02 | Student Report ---
[facility] Med Student Progress Note <Lamar Carmichael - Last Filed: 02/16/20 15:50> Date of Service Date of service: February 16, 2020 Subjective Subjective: This morning, Mr. Fregoso says he feels good and almost at baseline health for himself. Has been sleeping well. He worked with PT/OT and wants to get out of bed and keep moving. He reports no shortness of breath, fevers chest pain, chills, cough. Still has not had a BM since last Wednesday but reports no abdominal pain. Says richmond catheter ok today with no discomfort. Appetite has been good. Still has richmond catheter and urine has been clear with no blood. May attempt a voiding trial before discharge. Mr. Fregoso agreeable to rehab on discharge. ROS ROS: No SOB. No CP. No Fevers. No Chills. No bowel movement. Physical Exam Physical Exam: General Appearance: Well developed, obese, no acute distress Eyes: PERRL, EOMI. Fundi normal, vision is grossly intact. Ears: Hearing grossly intact. Nose: No nasal discharge. Cardiac: Normal S1 and S2. No S3, S4 or murmurs. Rhythm is regular. There is no peripheral edema, cyanosis or pallor. Extremities are warm and well perfused. Lungs: Diminished lung sounds, Abdomen: abdomen first, distended Skin:Dry and flakey skin, erythematous on face Psychiatric: A&Ox3. Results Results: WBC: 10.65 Hb.0 Hct: 41.3% Plt: 271 PT: 22.0 INR: 2.2 aPTT: 41.1 A&P A&P: 1. Pulmonary Embolism: On admission, CTA showed right sided pulmonary emboli. D dimer > 8000. No NOACs d/t BMI. On Heparin drip, INR at 2.2 today. Vitals stable. No respiratory distress. -Cont IV heparin drip w/ two day bridge of therapuetic INR, target INR 2-3, plan for discontinuation tomorrow -Will need Coumadin (warfarin) on discharge -PT/OT evaluation; encourage OOB and ambulation -Case management consulted with eventual plan for rehab on discharge 2. Acute respiratory failure w/ hypoxemia: Etiology likely due to PE and multifocal pneumonia. No fever. Vitals nml. -IV Abx 7 days- now just on Cefepime. Today Day 6. -Russel O2, HFNC/mask as needed, maintain sats in 90s, wean as able -PE treatment as above -Concern for ELIE, patient refusing BiPAP, use if patient agreeable 3. Seizure disorder: History of seizure disorder -Cont home phenobarital, phenytoin 4. Hematuria: Today 02/15 urine clear with no blodd/clots. Uro rec f/u as outpatient. -Outpt uro f/u for hematuria -Possible voiding trial before discharge 5. Constipation: Last BM 7 days ago; patient says he goes 2-5 times/week. No pain. Good appetite. Eating full meals. Still no BM today. -Increase Mirilax to BID, add Senokot until BM seen 6. Hypertension Blood pressures have been stable on 50 mg PO. -Cont metoprolol, russel. BP
[2020-02-16] MEDS: DOCUSATE SODIUM/SENNA 50/8.6MG TAB PO SCH (11:47)
[2020-02-16] MEDS: WARFARIN SOD 6 MG TAB PO SCH (17:38)
--- NOTE | 2020-02-16 20:02 | Hospitalist Progress Note ---
Date of Service February 16, 2020 Assessment & Plan (1) Pulmonary emboli: D dimer > 8000 CTA chest with right sided pulmonary emboli treated initially with heparin drip, started on Coumadin INR is 2.2 today, resume Coumadin at 6mg daily stop heparin this afternoon follow INR daily consult PT/OT, may need rehab after hospitalization HR is better today, no respiratory distress, improving nicely from initially distress (2) Acute respiratory failure with hypoxemia: multiple factors with acute right sided PE as well as multifocal pneumonia COVID and Biofire negative, Quantiferon gold negative treat PE with heparin drip, started on Coumadin, INR is now 2.2 treat pneumonia with Cefepime and Zithromax for 7 and 5 days respectively currently improved on oxymask no fever, WBC normal (3) Seizure disorder: History of Seizure Disorder - No seizure in many years - Continue [employer] phenytoin, 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 (4) Hematuria: appreciate urology consult keep richmond catheter plan for voiding trial prior to discharge and follow up outpatient would need hematuria worked up plan for voiding trial tomorrow (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: (6) Pneumonia: see above treat with Cefepime and Zithromax no fever today WBC normal, dry cough (7) Psoriasis: Admission and Anticipated Discharge Date Admission Date: February 12, 2020 Subjective patient doing really well today, says it is the best he has felt in terms of breathing no chest pain, no fever, no cough, no hematuria in the richmond bag eating well, wants to take a shower he agrees to getting therapy INR is 2.2, will start on Coumadin 6mg daily, stop heparin drip this afternoon discussed plan for rehab on discharge, patient agrees Review of Systems Review of Systems: All systems reviewed & are unremarkable except as noted in Subjective Constitutional: + fatigue and + weakness; no fever Respiratory: + dyspnea on exertion; no cough, no dyspnea and no sputum production Cardiovascular: no chest pain, no palpitations and no edema Gastrointestinal: + constipation; no abdominal pain, no nausea, no vomiting and no diarrhea/loose stools Physical Exam Constitutional: well developed and + morbidly obese; no acute distress Eyes: PERRL, conjunctivae normal, anicteric sclerae ENMT: external ear and nose normal, oropharynx normal Neck: trachea midline, no thyromegaly Respiratory: normal respiratory effort; no respiratory distress and no cough Auscultation: lungs clear to auscultation bilaterally and + diminished lung sounds (bases) Cardiovascular: Rate/Rhythm: regular rhythm and + tachycardic Heart Sounds: normal S1 and normal S2; no murmur Extremities: normal capillary refill; no edema Gastrointestinal (Abdomen): normal bowel sounds, soft, nontender, no hepatosplenomegaly Musculoskeletal: no cyanosis or clubbing, extremities motor strength 5/5 Skin: no rashes, warm and dry Neurologic: patellar DTR's 2+ bilat, sensation intact and PERRL, EOMI, accommodation nl, no face palsy, no dysarthria Psychiatric: A+Ox3, euthymic affect Lymphatic: no cervical or axillary lymphadenopathy Results & Data Results & Data ([facility]) Vital Signs (Past 12 Hours) Vital Signs Temp Pulse Pulse Resp BP BP Pulse Ox 02/16/20 16:00 105 H 02/16/20 15:36 37.2 C 94 H 18 155/81 H 95 02/16/20 10:46 36.5 C 102 H 20 96/66 L 96/66 L 95 02/16/20 08:20 105 H 144/88 H 92 02/16/20 08:00 100 H Laboratory Results Laboratory Results - last 24 hr 02/15/20 02/16/20 02/16/20 21:50 05:59 05:59 WBC 10.65 RBC 3.96 L Hgb 13.0 L Hct 41.3 L MCV 104.3 H MCH 32.8 MCHC 31.5 L RDW Std Deviation 59.5 H RDW Coeff of Hiwot 15.6 H Plt Count 271 MPV 9.9 Immature Gran % (Auto) 1.8 Neut % (Auto) 59.3 Lymph % (Auto) 17.5 [place] % (Auto) 16.1 Eos % (Auto) 5.0 Baso % (Auto) 0.3 Neut # (Auto) 6.33 Lymph # (Auto) 1.86 [place] # (Auto) 1.71 H Eos # (Auto) 0.53 H Baso # (Auto) 0.03 Immature Gran # (Auto) 0.19 H PT 24.0 H 22.0 H INR 2.4 H 2.2 H APTT 41.4 H PTT Ratio 1.5 Sodium Potassium Chloride Carbon Dioxide Anion Gap BUN Creatinine Est Cr Clr Drug Dosing Est GFR ( Amer) Est GFR (Non-Af Amer) BUN/Creatinine Ratio Glucose Calcium 02/16/20 05:59 WBC RBC Hgb Hct MCV MCH MCHC RDW Std Deviation RDW Coeff of Hiwot Plt Count MPV Immature Gran % (Auto) Neut % (Auto) Lymph % (Auto) [place] % (Auto) Eos % (Auto) Baso % (Auto) Neut # (Auto) Lymph # (Auto) [place] # (Auto) Eos # (Auto) Baso # (Auto) Immature Gran # (Auto) PT INR APTT PTT Ratio Sodium 137 Potassium 4.5 Chloride 100 Carbon Dioxide 30 Anion Gap 7.0 BUN 25 H Creatinine 1.07 Est Cr Clr Drug Dosing 103.6 Est GFR ( Amer) 84.0 Est GFR (Non-Af Amer) 72.5 BUN/Creatinine Ratio 22.9 H Glucose 96 Calcium 9.1 Medications Administered Current Inpatient Medications Acetaminophen (Acetaminophen 325 Mg Tab) 650 mg PO Q4H PRN PRN Reason: Fever Stop: 03/13/20 05:13 Last Admin: 02/12/20 21:56 Dose: 650 mg Documented by: Albuterol (Albut/Ipratrop 3mg/0.5mg Neb 3 Ml Vial) 3 ml INH Q4H PRN PRN Reason: Dyspnea Stop: 03/13/20 01:05 Calcitriol (Calcitriol 0.25 Mcg Capsule) 0.5 mcg PO [facility] Stop: 03/13/20 08:59 Last Admin: 02/16/20 09:57 Dose: 0.5 mcg Documented by: Cefepime HCl 2,000 mg/ Syringe 20 mls @ 5.5 mls/min IV Q8H [facility]; Protocol Stop: 02/19/20 05:59 Last Admin: 02/16/20 13:59 Dose: 5.5 mls/min Documented by: Levothyroxine Sodium (Levothyroxine Sodium 25 Mcg Tablet) [facility] Stop: 03/13/20 06:29 Last Admin: 02/16/20 06:07 Dose: 25 mcg Documented by: Metoprolol Succinate (Metoprolol Succ 50mg Ext Rel Tab) 50 mg PO [facility] Stop: 03/16/20 08:59 Last Admin: 02/16/20 09:57 Dose: 50 mg Documented by: Phenobarbital (Phenobarbital 32.4 Mg Tab) 64.8 mg PO DAILY [facility] Stop: 03/13/20 08:59 Last Admin: 02/16/20 10:10 Dose: 64.8 mg Documented by: Phenobarbital (Phenobarbital 32.4 Mg Tab) 97.2 mg PO HS [facility] Stop: 03/13/20 20:59 Last Admin: 02/15/20 20:45 Dose: 97.2 mg Documented by: Phenytoin Sodium (Phenytoin Sodium Er 100 Mg Cap) 200 mg PO QAM [facility] Stop: 03/15/20 08:59 Last Admin: 02/16/20 09:56 Dose: 200 mg Documented by: Phenytoin Sodium (Phenytoin Sodium Er 100 Mg Cap) 300 mg PO [facility] Stop: 03/14/20 20:59 Last Admin: 02/15/20 19:49 Dose: 300 mg Documented by: Polyethylene Glycol (Polyethylene (Miralax) 17 Gm Pack) 17 gm PO BID [facility] Stop: 03/17/20 20:59 Senna/Docusate Sodium (Docusate Sodium/Senna 50/8.6mg Tab) 1 tab PO QAM [facility] Stop: 03/17/20 10:29 Last Admin: 02/16/20 11:47 Dose: 1 tab Documented by: Warfarin Sodium (Warfarin Sod 6 Mg Tab) 6 mg PO DAILY@1600 [facility] Stop: 03/17/20 15:59 Last Admin: 02/16/20 17:38 Dose: 6 mg Documented by: PG Care Time/CCT Total # of Minutes Spent Total Time Spent with Patient: Total time spent is greater than 50% in coordination of care (as documented) at patient's floor/unit and/or counseling patient: Coding Level of Care Code 67307 Subseq Hosp Care Lvl 3 Diagnoses Pulmonary emboli I26.99 Acute respiratory failure with hypoxemia J96.01 Seizure disorder G40.909 Hematuria R31.9 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
[2020-02-17] MEDS: LEVOTHYROXINE SODIUM 25 MCG TABLET PO SCH (06:00)
[2020-02-17] MEDS: CEFEPIME 2,000 MG in SYRINGE 7.5 ML IV SCH ×3 (06:00→21:33)
[2020-02-17] MEDS: POLYETHYLENE (MIRALAX) 17 GM PACK PO SCH ×2 (09:07→20:58)
[2020-02-17] MEDS: METOPROLOL SUCC 50MG EXT REL TAB PO SCH (09:08)
[2020-02-17] MEDS: CALCITRIOL 0.25 MCG CAPSULE PO SCH (09:08)
[2020-02-17] MEDS: DOCUSATE SODIUM/SENNA 50/8.6MG TAB PO SCH (09:09)
[2020-02-17] MEDS: PHENYTOIN SODIUM ER 100 MG CAP PO SCH ×2 (09:09→20:58)
[2020-02-17 09:30] LABS: Hemoglobin 12.4 g/dL (14.0-18.0); Mean Corpuscular Hemoglobin 33.7 pg (25-34); Mean Corpuscular Hgb Conc 31.8 g/dL (32-36); Mean Platelet Volume 9.7 fL (7.4-10.4); Platelet Count 316 K/uL (130-400); RDW Coefficient of Variation 15.8 % (11.5-14.5); RDW Standard Deviation 61.7 fL (36.4-46.3); Red Blood Count 3.68 M/uL (4.7-6.1); White Blood Count 8.49 K/uL (4.8-10.8)
[2020-02-17 09:45] LABS: INR 2.5 (0.9-1.1); Prothrombin Time 25.1 Seconds (9.0-12.0)
[2020-02-17 10:03] LABS: BUN Creatinine Ratio 24.2 (10-20); Calcium 9.2 mg/dl (8.5-10.1); Creatinine Clr Calc Pharmacy 103.6 ml/min; Est GFR (Non-African American) 72.5; Potassium 4.4 mmol/L (3.5-5.1)
--- NOTE | 2020-02-17 11:55 | Hospitalist Progress Note ---
Date of Service February 17, 2020 Assessment & Plan (1) Pulmonary emboli: D dimer > 8000 on admission CTA chest with right sided pulmonary emboli treated initially with heparin drip, started on Coumadin INR is 2.5 today, continue Coumadin at 6mg daily heparin is now off follow INR daily, adjust accordingly consult PT/OT - he can go home once medically stable, still on oxygen toay HR is better today, no respiratory distress, improving nicely from initially distress will downgrade to medical floor (2) Acute respiratory failure with hypoxemia: multiple factors with acute right sided PE as well as multifocal pneumonia COVID and Biofire negative, Quantiferon gold negative treat PE with heparin drip, started on Coumadin, INR is now 2.5 treat pneumonia with Cefepime and Zithromax for 7 and 5 days respectively last day would be 02/16 for Zithromax and 02/18 for Cefepime currently stable on 3L via mask no fever, WBC normal (3) Seizure disorder: History of Seizure Disorder - No seizure in many years - Continue [employer] phenytoin, 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 (4) Hematuria: appreciate urology consult richmond catheter placed plan for voiding trial prior today would need hematuria worked up with urology in clinic (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: (6) Pneumonia: see above treat with Cefepime and Zithromax no fever today WBC normal, dry cough (7) Psoriasis: rash on face and arms no current medications Admission and Anticipated Discharge Date Admission Date: February 12, 2020 Subjective patient doing well, breathing stable, no cough, no fever he was evaluated by PT/OT and he can return home with home health when medically stable he is eating quite well reviewed labs, INR is 2.5 after the Coumadin 6mg yesterday Cr and cell counts stable discussed removing richmond today, he agrees to the voiding trial will downgrade to medical floor, discussed with brim and crown presser of Systems Review of Systems: All systems reviewed & are unremarkable except as noted in Subjective Respiratory: + dyspnea on exertion; no cough and no wheezing Cardiovascular: + edema; no chest pain and no syncope Gastrointestinal: no abdominal pain, no nausea, no vomiting, no constipation and no diarrhea/loose stools Physical Exam Constitutional: well developed and + morbidly obese; no acute distress Eyes: PERRL, conjunctivae normal, anicteric sclerae ENMT: external ear and nose normal, oropharynx normal Neck: trachea midline, no thyromegaly Respiratory: normal respiratory effort; no respiratory distress and no cough Auscultation: lungs clear to auscultation bilaterally and + diminished lung sounds (bases) Cardiovascular: Rate/Rhythm: regular rhythm and + tachycardic Heart Sounds: normal S1 and normal S2; no murmur Extremities: normal capillary refill; no edema Gastrointestinal (Abdomen): normal bowel sounds, soft, nontender, no hepatosplenomegaly Musculoskeletal: no cyanosis or clubbing, extremities motor strength 5/5 Skin: no rashes, warm and dry Neurologic: patellar DTR's 2+ bilat, sensation intact and PERRL, EOMI, accommodation nl, no face palsy, no dysarthria Psychiatric: A+Ox3, euthymic affect Lymphatic: no cervical or axillary lymphadenopathy Results & Data Results & Data ([facility]) Vital Signs (Past 12 Hours) Vital Signs Temp Pulse Pulse Pulse Resp BP Pulse Ox 02/17/20 11:47 37 C 91 H 18 123/77 92 02/17/20 07:47 36.6 C 107 H 20 113/70 90 02/17/20 07:09 91 H 02/17/20 04:27 37.2 C 93 H 20 147/82 H 93 Laboratory Results Laboratory Results - last 24 hr 02/17/20 02/17/20 02/17/20 08:50 08:50 08:50 WBC 8.49 RBC 3.68 L Hgb 12.4 L Hct 39.0 L MCV 106.0 H MCH 33.7 MCHC 31.8 L RDW Std Deviation 61.7 H RDW Coeff of Hiwot 15.8 H Plt Count 316 MPV 9.7 PT 25.1 H INR 2.5 H Sodium 135 L Potassium 4.4 Chloride 100 Carbon Dioxide 32 Anion Gap 3.0 BUN 26 H Creatinine 1.07 Est Cr Clr Drug Dosing 103.6 Est GFR ( Amer) 84.0 Est GFR (Non-Af Amer) 72.5 BUN/Creatinine Ratio 24.2 H Glucose 121 H Calcium 9.2 Medications Administered Current Inpatient Medications Acetaminophen (Acetaminophen 325 Mg Tab) 650 mg PO Q4H PRN PRN Reason: Fever Stop: 03/13/20 05:13 Last Admin: 02/12/20 21:56 Dose: 650 mg Documented by: Albuterol (Albut/Ipratrop 3mg/0.5mg Neb 3 Ml Vial) 3 ml INH Q4H PRN PRN Reason: Dyspnea Stop: 03/13/20 01:05 Calcitriol (Calcitriol 0.25 Mcg Capsule) 0.5 mcg PO QAM [facility] Stop: 03/13/20 08:59 Last Admin: 02/17/20 09:08 Dose: 0.5 mcg Documented by: Cefepime HCl 2,000 mg/ Syringe 20 mls @ 5.5 mls/min IV Q8H [facility]; Protocol Stop: 02/19/20 05:59 Last Admin: 02/17/20 06:00 Dose: 5.5 mls/min Documented by: Levothyroxine Sodium (Levothyroxine Sodium 25 Mcg Tablet) [facility] Stop: 03/13/20 06:29 Last Admin: 02/17/20 06:00 Dose: 25 mcg Documented by: Metoprolol Succinate (Metoprolol Succ 50mg Ext Rel Tab) 50 mg PO [facility] Stop: 03/16/20 08:59 Last Admin: 02/17/20 09:08 Dose: 50 mg Documented by: Phenobarbital (Phenobarbital 32.4 Mg Tab) 64.8 mg PO DAILY [facility] Stop: 03/13/20 08:59 Last Admin: 02/17/20 09:15 Dose: 64.8 mg Documented by: Phenobarbital (Phenobarbital 32.4 Mg Tab) 97.2 mg PO [facility] Stop: 03/13/20 20:59 Last Admin: 02/16/20 20:23 Dose: 97.2 mg Documented by: Phenytoin Sodium (Phenytoin Sodium Er 100 Mg Cap) [facility] Stop: 03/15/20 08:59 Last Admin: 02/17/20 09:09 Dose: 200 mg Documented by: Phenytoin Sodium (Phenytoin Sodium Er 100 Mg Cap) 300 mg PO [facility] Stop: 03/14/20 20:59 Last Admin: 02/16/20 20:16 Dose: 300 mg Documented by: Polyethylene Glycol (Polyethylene (Miralax) 17 Gm Pack) 17 gm PO BID [facility] Stop: 03/17/20 20:59 Last Admin: 02/17/20 09:07 Dose: 17 gm Documented by: Senna/Docusate Sodium (Docusate Sodium/Senna 50/8.6mg Tab) 1 tab PO QAM [facility] Stop: 03/17/20 10:29 Last Admin: 02/17/20 09:09 Dose: 1 tab Documented by: Warfarin Sodium (Warfarin Sod 6 Mg Tab) 6 mg PO DAILY@1600 [facility] Stop: 03/17/20 15:59 Last Admin: 02/16/20 17:38 Dose: 6 mg Documented by: PG Care Time/CCT Total # of Minutes Spent Total Time Spent: 32 Total Time Spent with Patient: Total time spent is greater than 50% in coordination of care (as documented) at patient's floor/unit and/or counseling patient: Coding Level of Care Code 26148 Subseq Hosp Care Lvl 3 Diagnoses Pulmonary emboli I26.99 Acute respiratory failure with hypoxemia J96.01 Seizure disorder G40.909 Hematuria R31.9 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
[2020-02-17] MEDS: WARFARIN SOD 6 MG TAB PO SCH (17:44)
[2020-02-18] MEDS: LEVOTHYROXINE SODIUM 25 MCG TABLET PO SCH (05:47)
[2020-02-18] MEDS: CEFEPIME 2,000 MG in SYRINGE 7.5 ML IV SCH ×3 (05:47→21:18)
[2020-02-18 07:16] LABS: Hematocrit (blood only) 43.3 % (42-52); Hemoglobin 13.3 g/dL (14.0-18.0); Mean Corpuscular Hemoglobin 32.5 pg (25-34); Mean Corpuscular Hgb Conc 30.7 g/dL (32-36); Mean Corpuscular Volume 105.9 fL (80-100); Mean Platelet Volume 9.5 fL (7.4-10.4); Platelet Count 325 K/uL (130-400); RDW Coefficient of Variation 15.6 % (11.5-14.5); RDW Standard Deviation 60.7 fL (36.4-46.3); Red Blood Count 4.09 M/uL (4.7-6.1); White Blood Count 8.35 K/uL (4.8-10.8)
[2020-02-18 07:26] LABS: INR 2.8 (0.9-1.1); Prothrombin Time 28.2 Seconds (9.0-12.0)
[2020-02-18 07:39] LABS: Creatinine Clr Calc Pharmacy 95.6 ml/min; Est GFR (African American) 76.2; Est GFR (Non-African American) 65.7; Potassium 4.6 mmol/L (3.5-5.1)
[2020-02-18] MEDS: METOPROLOL SUCC 50MG EXT REL TAB PO SCH (08:23)
[2020-02-18] MEDS: PHENYTOIN SODIUM ER 100 MG CAP PO SCH ×2 (08:23→20:44)
[2020-02-18] MEDS: CALCITRIOL 0.25 MCG CAPSULE PO SCH (08:23)
[2020-02-18] MEDS: DOCUSATE SODIUM/SENNA 50/8.6MG TAB PO SCH (08:24)
[2020-02-18] MEDS: POLYETHYLENE (MIRALAX) 17 GM PACK PO SCH ×2 (08:24→20:42)
[2020-02-18] MEDS ORDERED: WARFARIN SOD 5 MG TAB PO SCH (16:00)
--- NOTE | 2020-02-18 16:48 | Hospitalist Progress Note ---
Date of Service February 18, 2020 Assessment & Plan (1) Pulmonary emboli: D dimer > 8000 on admission CTA chest with right sided pulmonary emboli treated initially with heparin drip, started on Coumadin INR is 2.8 today, reduce Coumadin to 5mg from 6mg check INR in the AM, likely can go home on 5mg daily would need to be set up with his PCP for INR checks heparin off for two days consult PT/OT - he can go home once medically stable titrated off of oxygen today HR is better today, no respiratory distress, improving nicely from initially distress will downgrade to medical floor plan to d/c to home tomorrow (2) Acute respiratory failure with hypoxemia: multiple factors with acute right sided PE as well as multifocal pneumonia COVID and Biofire negative, Quantiferon gold negative treat PE with heparin drip, started on Coumadin, INR is now 2.8 treat pneumonia with Cefepime and Zithromax for 7 and 5 days respectively last day would be 02/16 for Zithromax and 02/18 for Cefepime currently stable on room air no fever, WBC normal can be discharged tomorrow (3) Seizure disorder: History of Seizure Disorder - No seizure in many years - Continue [employer] phenytoin, 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 (4) Hematuria: appreciate urology consult richmond catheter placed richmond pulled 02/16, he is urinating well, has some incontinence would need hematuria worked up with urology in clinic PCP should refer him to urology in near future (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: (6) Pneumonia: see above treat with Cefepime and Zithromax no fever today WBC normal, dry cough complete antibiotics tomorrow, can go home without antibiotics (7) Psoriasis: rash on face and arms no current medications Admission and Anticipated Discharge Date Admission Date: February 12, 2020 Subjective patient doing well today, he was titrated off of oxygen ambulating in the room, no dyspnea on exertion he is having some urinary incontinence every since the richmond was removed reviewed labs, INR is 2.8 on 6mg of Coumadin, will back off to 5mg discussed discharge plans with patient he said his family can pick him up tomorrow, he lives in [place] [facility] he says he would want to follow with his PCP for INR checks he is finished with antibiotics today, no need for them further Review of Systems Review of Systems: All systems reviewed & are unremarkable except as noted in Subjective Constitutional: no fever Respiratory: no cough, no dyspnea and no dyspnea on exertion Cardiovascular: no chest pain Gastrointestinal: no abdominal pain, no nausea, no vomiting, no constipation and no diarrhea/loose stools Genitourinary: + urinary incontinence Physical Exam Constitutional: well developed and + morbidly obese; no acute distress Eyes: PERRL, conjunctivae normal, anicteric sclerae ENMT: external ear and nose normal, oropharynx normal Neck: trachea midline, no thyromegaly Respiratory: normal respiratory effort; no respiratory distress and no cough Auscultation: lungs clear to auscultation bilaterally and + diminished lung sounds (bases) Cardiovascular: Rate/Rhythm: regular rate and regular rhythm Heart Sounds: normal S1 and normal S2; no murmur Extremities: normal capillary refill; no edema Gastrointestinal (Abdomen): normal bowel sounds, soft, nontender, no hepatosplenomegaly Musculoskeletal: no cyanosis or clubbing, extremities motor strength 5/5 Skin: no rashes, warm and dry Neurologic: patellar DTR's 2+ bilat, sensation intact and PERRL, EOMI, accommodation nl, no face palsy, no dysarthria Psychiatric: A+Ox3, euthymic affect Lymphatic: no cervical or axillary lymphadenopathy Results & Data Results & Data ([facility]) Vital Signs (Past 12 Hours) Vital Signs Temp Pulse Resp BP BP Pulse Ox 02/18/20 16:05 36.8 C 100 H 18 112/78 90 02/18/20 12:10 91 02/18/20 08:07 36.8 C 103 H 18 132/82 96 Laboratory Results Laboratory Results - last 24 hr 02/17/20 02/18/20 02/18/20 16:46 06:56 06:56 WBC 8.35 RBC 4.09 L Hgb 13.3 L Hct 43.3 MCV 105.9 H MCH 32.5 MCHC 30.7 L RDW Std Deviation 60.7 H RDW Coeff of Hiwot 15.6 H Plt Count 325 MPV 9.5 PT 28.2 H INR 2.8 H Sodium Potassium Chloride Carbon Dioxide Anion Gap BUN Creatinine Est Cr Clr Drug Dosing Est GFR ( Amer) Est GFR (Non-Af Amer) BUN/Creatinine Ratio Glucose POC Glucose 97 Calcium 02/18/20 02/18/20 06:56 16:37 WBC RBC Hgb Hct MCV MCH MCHC RDW Std Deviation RDW Coeff of Hiwot Plt Count MPV PT INR Sodium 134 L Potassium 4.6 Chloride 99 Carbon Dioxide 31 Anion Gap 4.0 BUN 24 H Creatinine 1.16 Est Cr Clr Drug Dosing 95.6 Est GFR ( Amer) 76.2 Est GFR (Non-Af Amer) 65.7 BUN/Creatinine Ratio 21.0 H Glucose 99 POC Glucose 104 H Calcium 9.0 Medications Administered Current Inpatient Medications Acetaminophen (Acetaminophen 325 Mg Tab) 650 mg PO Q4H PRN PRN Reason: Fever Stop: 03/13/20 05:13 Last Admin: 02/12/20 21:56 Dose: 650 mg Documented by: Albuterol (Albut/Ipratrop 3mg/0.5mg Neb 3 Ml Vial) 3 ml INH Q4H PRN PRN Reason: Dyspnea Stop: 03/13/20 01:05 Calcitriol (Calcitriol 0.25 Mcg Capsule) 0.5 [facility] Stop: 03/13/20 08:59 Last Admin: 02/18/20 08:23 Dose: 0.5 mcg Documented by: Cefepime HCl 2,000 mg/ Syringe 20 mls @ 5.5 mls/min IV Q8H [facility]; Protocol Stop: 02/19/20 05:59 Last Admin: 02/18/20 14:59 Dose: 5.5 mls/min Documented by: Levothyroxine Sodium (Levothyroxine Sodium 25 Mcg Tablet) [facility] Stop: 03/13/20 06:29 Last Admin: 02/18/20 05:47 Dose: 25 mcg Documented by: Metoprolol Succinate (Metoprolol Succ 50mg Ext Rel Tab) 50 [facility] Stop: 03/16/20 08:59 Last Admin: 02/18/20 08:23 Dose: 50 mg Documented by: Phenobarbital (Phenobarbital 32.4 Mg Tab) 64.8 mg PO DAILY [facility] Stop: 03/13/20 08:59 Last Admin: 02/18/20 08:29 Dose: 64.8 mg Documented by: Phenobarbital (Phenobarbital 32.4 Mg Tab) 97.2 mg PO [facility] Stop: 03/13/20 20:59 Last Admin: 02/17/20 20:58 Dose: 97.2 mg Documented by: Phenytoin Sodium (Phenytoin Sodium Er 100 Mg Cap) 200 mg PO QAM [facility] Stop: 03/15/20 08:59 Last Admin: 02/18/20 08:23 Dose: 200 mg Documented by: Phenytoin Sodium (Phenytoin Sodium Er 100 Mg Cap) 300 mg PO HS [facility] Stop: 03/14/20 20:59 Last Admin: 02/17/20 20:58 Dose: 300 mg Documented by: Polyethylene Glycol (Polyethylene (Miralax) 17 Gm Pack) 17 gm PO BID [facility] Stop: 03/17/20 20:59 Last Admin: 02/18/20 08:24 Dose: Not Given Documented by: Senna/Docusate Sodium (Docusate Sodium/Senna 50/8.6mg Tab) 1 tab [facility] Stop: 03/17/20 10:29 Last Admin: 02/18/20 08:24 Dose: Not Given Documented by: Warfarin Sodium (Warfarin Sod 5 Mg Tab) 5 mg PO DAILY@1600 [facility] Stop: 03/19/20 15:59 Last Admin: 02/18/20 14:58 Dose: 5 mg Documented by: PG Care Time/CCT Total # of Minutes Spent Total Time Spent with Patient: Total time spent is greater than 50% in coordination of care (as documented) at patient's floor/unit and/or counseling patient: Coding Level of Care Code 52888 Subseq Hosp Care Lvl 3 Diagnoses Pulmonary emboli I26.99 Acute respiratory failure with hypoxemia J96.01 Seizure disorder G40.909 Hematuria R31.9 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
[2020-02-19] MEDS: LEVOTHYROXINE SODIUM 25 MCG TABLET PO SCH (06:04)
[2020-02-19 06:46] LABS: INR 3.3 (0.9-1.1); Prothrombin Time 32.9 Seconds (9.0-12.0)
[2020-02-19] MEDS: POLYETHYLENE (MIRALAX) 17 GM PACK PO SCH (08:08)
[2020-02-19] MEDS: DOCUSATE SODIUM/SENNA 50/8.6MG TAB PO SCH (08:09)
[2020-02-19] MEDS: CALCITRIOL 0.25 MCG CAPSULE PO SCH (08:09)
[2020-02-19] MEDS: METOPROLOL SUCC 50MG EXT REL TAB PO SCH (08:09)
[2020-02-19] MEDS: PHENYTOIN SODIUM ER 100 MG CAP PO SCH (08:09)
--- NOTE | 2020-02-19 13:34 | Discharge Summary ---
Date of Service February 19, 2020 Admission HPI Per Admitting Provider Carson Fregoso is a 65-year-old male with past medical history of seizure disorder and "heart problems "who presents as a direct transfer from [facility] for acute hypoxic respiratory failure. Patient presented to outside hospital with a primary complaint of difficulty voiding and problems with his bowels. Patient was observed by the ED staff to be having difficulty breathing, and required placement on a BiPAP. Peripheral IV access was attempted, but unable to be obtained with repeat attempts. A central line was attempted to be placed by OSH, but central line access was not able to be obtained by the ED or general surgery staff. While in their emergency department patient was noted to have a ABG with pH 7.45, PCO2 41, oxygen pressure of 47, bicarb 28. Chest x-ray showed batwing infiltrates, and concern for edema versus infectious infiltrates. BMP 2K, negative troponin, no EKG abnormalities. Sodium 132, potassium 3.9, creatinine was acutely elevated to 1.3, chloride 97, bicarb 30, GFR 55. Patient was noted to have low phenytoin and 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 levels of 9.4 and 14.7 respectively. Patient with a leukocytosis to 11.7 and given his chest x-ray, hypoxia, and leukocytosis concern was raised for COVID. Covid test was obtained, but [facility] were not available at their facility. Case was discussed between [facility] attending and [facility] hospitalist group and accepted for transfer.Prior to transfer patient received vancomycin, cefepime, and doxycycline antibiotics and 1 g of Tylenol. Patient seen at bedside, wearing CPAP. He reports he is not short of breath, and feels "okay ". He denies fever, chills, sweats, shortness of breath, chest pain, abdominal pain. He is a limited historian. He reports a history of seizures with last seizure many years ago currently on medications that he is not able to give the name of. He denies a history of heart disease and other medications. When asked if he is aware that it was mentioned that he had heart problems noted in his chart he responds "that is news to me ". 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 He has not been around anyone who is traveled, and he himself has not traveled. 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 Denies other medical history. Medical history: Stable seizure disorder Medications: Lisinopril/hydrochlorothiazide 10/12.5 mg 1 tab daily. Phenobarbital 64.8 mg daily 500, 97.2 mg at bedtime. Phenytoin 200 mg 0500, 300 mg nightly. Surgical history: Unable to be obtained by OSH due to confusion. Allergies: Penicillin, rash. Social: Tobacco, alcohol, recreational drug use unknown, unable to obtain due to altered mental status. CODE STATUS: Full code per signout Principal Diagnosis Acute pulmonary emboli, Acute respiratory failure with hypoxia Discharge Exam Constitutional WD/WN, vitals as above + morbidly obese Eyes + anicteric sclerae Neck trachea midline, no thyromegaly Respiratory normal respiratory effort, lungs clear to auscultation Cardiovascular Rate/Rhythm: regular rhythm and + tachycardic (mild, low 100s) Heart Sounds: no murmur Extremities: + edema (mild LEs bilat) Chest (Breasts) Chest: normal inspection of chest Gastrointestinal (Abdomen) normal bowel sounds, soft, nontender, no hepatosplenomegaly Musculoskeletal Extremities: extremities normal to inspection; no cyanosis and no clubbing Skin dry flaky skin on face and extensor surfaces of arms Neurologic moves all extremities and awake; no focal motor deficits Psychiatric A+Ox3, euthymic affect Lymphatic no lymphedema Discharge Data Allergies Allergy/AdvReac Type Severity Reaction Status Date / Time Penicillins Allergy Rash Verified 02/12/20 00:39 Consultations 02/12/20 00:19 Consult Sales And Marketing Coordinator Routine 02/12/20 01:06 Consult Case Management - Discharge Planning Routine 02/12/20 01:07 Consult Case Management - Discharge Planning Routine 02/12/20 10:10 Consult Urology Routine Ordered Studies 02/12/20 04:37 CT chest w con Urgent 02/12/20 17:40 US venous doppler LE BI Urgent CXR x 4 Hospital Course (1) Pulmonary emboli: D dimer > 8000 on admission CTA chest with right sided pulmonary emboli treated initially with heparin drip, started on Coumadin He was on Eliquis intermittently it seems prior to admission for Afib as confirmed with his viscosity tester that sets up his home meds. However, given morbid obesity and the fact that he had PEs on Eliquis-would consider a failure of Eliquis nad agree with transition to Coumadin INR is 3.3 on day of discharge but dose was recently reduced so would continue Coumadin 5mg daily Check INR at home in 2-3 days with home nursing and then 2x/week after that until INR consistently therapeutic -I have asked the Nurse Navigator to set up with his PCP for INR checks Compliance with medications has been an issue in the past so discussed with pt and caregiver the importance of checking his PT/INR on a regular basis titrated off of oxygen and did not need it with ambulation on day of discharge, POx 90% on room air Has sinus tachycardia with minimal exertion but was also only getting Toprol XL 50mg here and on day of dc was discovered he actually should be on 100mg daily- may have been some due to rebound tachycardia from beta mp withdrawal (2) Acute respiratory failure with hypoxemia: multiple factors with acute right sided PE as well as multifocal pneumonia COVID and Biofire negative, Quantiferon gold negative treated PE with heparin drip, started on Coumadin, INR is therapeutic and there was 2 days of overlap therapy treated pneumonia with Cefepime and Zithromax for 7 and 5 days respectively currently stable on room air no fever, WBC normal (3) Seizure disorder: History of Seizure Disorder - No seizure in many years - Continue TACKER OFF phenytoin, 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 (4) Hematuria: appreciate urology consult richmond catheter placed richmond pulled 02/16, he is urinating well, has some incontinence would need hematuria worked up with urology in clinic PCP should refer him to urology in near future (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: noted (6) Pneumonia: see above treated with Cefepime and Zithromax no fever WBC normal, dry cough WIll need follow up chest xray arranged through PCP in 3-4 weeks to ensure has resolved radiographically (7) Psoriasis: rash on face and arms no current medications on Vit D f/u with PCP (8) Paroxysmal atrial fibrillation: With a h/o such, was recently stopped on amiodarone due to possible side effects Continue Toprol XL 100mg daily -now STOP Eliquis and started on Coumadin as above in sinus tach to NSR here (9) Hypothyroidism: recently started on LT4 with PCP -continue LYT4 25mcg daily f/u PCP Dispo-stable for dc to home with home health today Total Time Total Time Spent Total Time Spent (In Minutes): >30 min Total Time Includes: Examination of the Patient, Discharge Planning and Medication Reconciliation Discharge Plan Discharge Items Patient Disposition: Home - Home Health Services Reason For Visit: DIRECT TRANSFER AHRF, COVID PUI Discharge Diagnosis: Acute pulmonary emboli, Acute respiratory failure with hypoxia Condition on Discharge: Fair Activity: As commented below Lifting: Gradually increase as tolerated Bathing: No limitations Exercise/Sports: Gradually increase as tolerated Non-emergency contact: Primary Care Provider Call non-emergency contact if: you have any medication questions, your symptoms worsen, your pain is not controlled, your pain is worsening, your pain is unusual for you, your pain is concerning for you and you have a fever Follow-up/Referrals: Rick Becerra DO [Primary Care Provider] - (Please follow up with Dr. Becerra within 1-2 weeks.) Diet: Regular Diet Comment: Coumadin diet-consistent Vitamin K Addtl Attending Provider Instructions: You were admitted and found to have blood clots in your legs. You will need to STOP taking the Eliquis (blood thinner) you were on previously and were STARTED ON Coumadin instead to thin your blood. Please have your blood work checked with home nursing agency in 2-3 days-this test called PT/INR determines how thick or thin your blood is while on Coumadin. This should be tested twice a week for the first 1-2 weeks and then usually can be tested every 1-2 weeks after that with Dr[address] Becerra. If you develop worsening shortness of breath or chest pain, or any other acute problems, please go to the hospital immediately. Pending Studies at Discharge: No Stand-Alone Forms: My [facility] Medications and DC Order Prescriptions: New warfarin 5 mg Tablet 5 mg PO DAILY@1600 Qty: 30 RF: 0 Continued 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 32.4 mg 97.2 mg PO HS RF: 0 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 32.4 mg 64.8 mg PO 0500 RF: 0 metoprolol succinate 100 mg tablet extended release 24 hr 100 mg PO DAILY RF: 0 phenytoin sodium extended 100 mg capsule 200 mg PO BID RF: 0 ergocalciferol (vitamin D2) [Vitamin D2] 1,250 mcg (50,000 unit) capsule 50,000 unit PO Q7D RF: 0 calcitriol 0.25 mcg capsule 0.25 mcg PO DAILY RF: 0 levothyroxine 25 mcg tablet 25 mcg PO DAILY RF: 0 docusate sodium 100 mg Capsule 100 mg PO BID RF: 0 cholecalciferol (vitamin D3) [Vitamin D3] 25 mcg (1,000 unit) Tablet 25 mcg PO DAILY RF: 0 omega 8-sxp-nfo-fish oil 900 (078-647) mg Capsule,Delayed Release(Dr/Ec) 1 cap PO DAILY RF: 0 PreserVision AREDS-2 108-560-11-1 jf-dttq-ar-mg Capsule 1 tab PO DAILY RF: 0 Discontinued Eliquis 5 mg tablet 5 mg PO BID RF: 0 Discharge Orders: Discharge Order (Routine); Ordered 02/19/20 Ordered By: Alicia Hinds/Other Patient Handouts: Pulmonary Embolism, What to Know When TakingWarfarin Admission Data Admit Date/Time: 02/12/20 00:00 Attending Provider: Alicia Mata Admit Provider: Endy Courtney Primary Care Provider: Rick Becerra Other Providers: [facility] ; [facility] ; Erin Jurado Coding Level of Care Code D/C Day Management >30 mins Diagnoses Pulmonary emboli I26.99 Acute respiratory failure with hypoxemia J96.01 Seizure disorder G40.909 Hematuria R31.9 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
--- NOTE | 2020-02-19 15:22 | Electrocardiogram Report ---
Test Reason : Blood Pressure : / mmHG Vent. Rate : 110 BPM Atrial Rate : 110 BPM P-R Int : 182 ms QRS Dur : 086 ms QT Int : 330 ms P-R-T Axes : 035 -04 020 degrees QTc Int : 446 ms Sinus tachycardia Cannot rule out Anterolateral infarct , age undetermined Abnormal ECG When compared with ECG of 13-FEB-2020 08:22, Premature ventricular complexes are no longer Present Premature supraventricular complexes are no longer Present Borderline Criteria for Anterolateral infarct is now Present Confirmed by Luis Manley ([id number]) on 02/19/2020 3:21:31 PM Referred By: Endy Courtney Confirmed By:Luis Manley
== END 2020-02-19 14:36 | disposition home health service (06) | DRG 175 ==
LOC: SUATTDRO → 1E → 2S 02-15 18:57 → 2N 02-17 12:19